=== PATIENT | male | born 1950 | race Caucasian/White ===

== ENCOUNTER 2023-07-21 18:09 | Inpatient (IN) | payer BC, SELFPAY ==
[2023-07-21] VITALS (10 sets, daily range): BP systolic 97–160; BP diastolic 54–84; BMI 28.0; BMI 27.1
[2023-07-21 15:16] LABS: ALT (SGPT) 47 U/L (0-50); AST (SGOT) 53 U/L (17-59); Albumin 4.4 g/dl (3.5-5.0); Alkaline Phosphatase 43 U/L (38-126); Blood Urea Nitrogen 18 mg/dl (9-20); Calcium 9.3 mg/dl (8.4-10.2); Carbon Dioxide 30 mmol/L (22-30); Chloride 71 mmol/L (98-107); Glucose 145 mg/dl (70-99); Potassium 2.9 mmol/L (3.5-5.1); Sodium 111 mmol/L (135-145); Total Bilirubin 3.5 mg/dl (0.2-1.3); eGFR > 60.00
[2023-07-21 15:45] LABS: % Basophils 0.2 % (0-2); % Eosinophils 0.5 % (0-6); % Immature Granulocytes 1.9 % (0-0.5); % Lymphocytes 8.1 % (20.5-51.1); % Monocytes 10.9 % (1.7-9.3); % Neutrophils 78.4 % (42.2-75.2); Absolute Eosinophils 0.1 10^3/uL (0-0.7); Absolute Immature Granulocytes 0.2 10^3/uL (0-0.05); Absolute Lymphocytes 0.9 10^3/uL (1.2-3.4); Absolute Monocytes 1.3 10^3/uL (0.1-0.6); Hematocrit 42.9 % (39.0-52.0); Hemoglobin 17.3 g/dL (13.0-18.0); Mean Corp Hgb Conc. 40.3 g/dL (33.0-37.0); Mean Corpuscular Hgb 33.6 pg (27.0-31.0); Mean Corpuscular Volume 83.3 fL (80.0-94.0); Mean Platelet Volume 8.3 fL (7.4-10.4); Nucleated Red Blood Cells % 0 % (-); Platelet Count 270 10^3/uL (130-400); Red Blood Cell Count 5.15 10^6/uL (4.70-6.10); Red Cell Dist. Width 11.9 % (11.5-14.5); White Blood Cell Count 11.5 10^3/uL (4.8-10.8)
--- NOTE | 2023-07-21 16:15 | ED.GENMED ---
History of Present Illness
<Evan Varela PA-C - Last Filed: 07/21/23 17:00>
General
Chief Complaint: Dehydration Symptoms
Source: patient
Exam Limitations: none
Time Seen by Provider: 07/21/23 15:51
Travel History
Have you had any contact with someone who has COVID-19?: No
Do you have any symptoms of coronavirus? Fever > 100 degrees, chills, cough, shortness of breath, sore throat, loss of taste or smell, muscle aches, or headache?: No
History of Present Illness
History of Present Illness:
73-year-old male presents with progressive weakness fatigue and subtle confusion. He was initially thought to have a sinus infection by family doctor and was taking Levaquin. He is on hydrochlorothiazide 25 mg daily as well as a statin. He denies
abdominal pain or vomiting. He does his appetite. He does not note a headache. No fever. No swelling. No other complaints at this time.
Phy Exam
<Evan Varela PA-C - Last Filed: 07/21/23 17:00>
Physical Exam
Physical Exam:
General: WEll appearing male NAD
HEENT: NC/AT
Heart: RRR, no murmurs
Lungs; CTA bilaterally
Abd; soft, nontender
Ext: no cyanosis
Skin: Warm, no rash
Neuro: Alert and oriented x 3. No tremor.
Course
<Evan Varela PA-C - Last Filed: 07/21/23 17:00>
Orders/Labs/Results
Orders:
Orders
07/21/23 14:42
Complete Blood Count/With Diff Urgent
Comprehensive Metabolic Panel Urgent
07/21/23 16:00
Add On- LAB Urgent
Tests Added?: serum osmolality
Osmolality, Random Urine Urgent
Date Specimen was Collected: 07/21/23
Time Specimen was Collected: 16:25
Urine Sodium Urgent
Date Specimen was Collected: 07/21/23
Time Specimen was Collected: 16:25
07/21/23 16:01
Urinalysis Reflex To Culture Urgent
Date Specimen was Collected: 07/21/23
Time Specimen was Collected: 16:25
07/21/23 16:11
BMP [Basic Metabolic Panel] Stat
Serum Osmolality Stat
07/21/23 17:00
3% Sodium Chloride 250 ml [Sodium Chloride 3%] 250 ml IV ONCE
Abnormal Lab Results
07/21/23 07/21/23
14:42 16:11
WBC 11.5 H 10^3/uL
(4.8-10.8)
MCH 33.6 H pg
(27.0-31.0)
MCHC 40.3 H g/dL
(33.0-37.0)
Abs Immat Gran (auto) 0.2 H 10^3/uL
(0-0.05)
Absolute Neuts (auto) 9.0 H 10^3/uL
(1.4-6.5)
Absolute Lymphs (auto) 0.9 L 10^3/uL
(1.2-3.4)
Absolute Monos (auto) 1.3 H 10^3/uL
(0.1-0.6)
Immature Gran % 1.9 H %
(0-0.5)
Neutrophils % 78.4 H %
(42.2-75.2)
Lymphocytes % 8.1 L %
(20.5-51.1)
Monocytes % 10.9 H %
(1.7-9.3)
Sodium 111 L* mmol/L 108 L* mmol/L
(135-145) (135-145)
Potassium 2.9 L mmol/L 3.1 L mmol/L
(3.5-5.1) (3.5-5.1)
Chloride 71 L mmol/L 72 L mmol/L
(98-107) (98-107)
Glucose 145 H mg/dl 122 H mg/dl
(70-99) (70-99)
Total Bilirubin 3.5 H mg/dl
(0.2-1.3)
07/21/23 14:42
07/21/23 16:11
Vital Signs
Initial and Last Documented VS:
Initial Vital Signs
Temp Pulse Resp BP Pulse Ox
98.0 F 76 16 109/65 98
07/21/23 14:33 07/21/23 14:33 07/21/23 14:33 07/21/23 14:33 07/21/23 14:33
Last Documented Vital Signs
Temp Pulse Resp BP Pulse Ox
98.0 F 68 24 132/74 91
07/21/23 14:33 07/21/23 16:15 07/21/23 16:15 07/21/23 16:00 07/21/23 16:15
<Magali Das MD - Last Filed: 07/21/23 16:58>
Orders/Labs/Results
Orders:
Orders
07/21/23 14:42
Complete Blood Count/With Diff Urgent
Comprehensive Metabolic Panel Urgent
07/21/23 16:00
Add On- LAB Urgent
Tests Added?: serum osmolality
Osmolality, Random Urine Urgent
Date Specimen was Collected: 07/21/23
Time Specimen was Collected: 16:25
Urine Sodium Urgent
Date Specimen was Collected: 07/21/23
Time Specimen was Collected: 16:25
07/21/23 16:01
Urinalysis Reflex To Culture Urgent
Date Specimen was Collected: 07/21/23
Time Specimen was Collected: 16:25
07/21/23 16:11
BMP [Basic Metabolic Panel] Stat
Serum Osmolality Stat
07/21/23 17:00
3% Sodium Chloride 250 ml [Sodium Chloride 3%] 250 ml IV ONCE
Abnormal Lab Results
07/21/23 07/21/23
14:42 16:11
WBC 11.5 H 10^3/uL
(4.8-10.8)
MCH 33.6 H pg
(27.0-31.0)
MCHC 40.3 H g/dL
(33.0-37.0)
Abs Immat Gran (auto) 0.2 H 10^3/uL
(0-0.05)
Absolute Neuts (auto) 9.0 H 10^3/uL
(1.4-6.5)
Absolute Lymphs (auto) 0.9 L 10^3/uL
(1.2-3.4)
Absolute Monos (auto) 1.3 H 10^3/uL
(0.1-0.6)
Immature Gran % 1.9 H %
(0-0.5)
Neutrophils % 78.4 H %
(42.2-75.2)
Lymphocytes % 8.1 L %
(20.5-51.1)
Monocytes % 10.9 H %
(1.7-9.3)
Sodium 111 L* mmol/L 108 L* mmol/L
(135-145) (135-145)
Potassium 2.9 L mmol/L 3.1 L mmol/L
(3.5-5.1) (3.5-5.1)
Chloride 71 L mmol/L 72 L mmol/L
(98-107) (98-107)
Glucose 145 H mg/dl 122 H mg/dl
(70-99) (70-99)
Total Bilirubin 3.5 H mg/dl
(0.2-1.3)
07/21/23 14:42
07/21/23 16:11
Vital Signs
Initial and Last Documented VS:
Initial Vital Signs
Temp Pulse Resp BP Pulse Ox
98.0 F 76 16 109/65 98
07/21/23 14:33 07/21/23 14:33 07/21/23 14:33 07/21/23 14:33 07/21/23 14:33
Last Documented Vital Signs
Temp Pulse Resp BP Pulse Ox
98.0 F 68 24 132/74 91
07/21/23 14:33 07/21/23 16:15 07/21/23 16:15 07/21/23 16:00 07/21/23 16:15
<Evan Varela PA-C - Last Filed: 07/21/23 17:00>
MDM/Problems Addressed
Differential Diagnosis Includes:
Fatigue and weakness. Question viral illness versus electrolyte abnormality versus anemia
Labs demonstrate a sodium of 111. This would be new diagnosis for the patient. Will recheck labs. If this is accurate consider hypertonic saline for symptomatic hyponatremia.
<Evan Varela PA-C - Last Filed: 07/21/23 17:00>
*Critical Care Note
Total Time (30-74mins, 75-104mins- exclusive of procedures): Not Applicable
<Evan Varela PA-C - Last Filed: 07/21/23 17:00>
Update Note
Update Note:
Recheck sodium 108. Patient is on hydrochlorothiazide. Discussed with nephrology who is in the room currently. Will admit to hospital for acute hyponatremia hypertonic saline ordered
ED Attending Note
<Evan Varela PA-C - Last Filed: 07/21/23 17:00>
-
Portions of this chart may have been created with voice recognition software.� Occasional wrong word or��sound alike� substitutions may have occurred due to the inherent limitations of voice recognition software.
<Magali Das MD - Last Filed: 07/21/23 16:58>
ED Attending Note
Patient seen and examined by attending physician: Yes
I performed the substantive portion of visit, reviewed & personally made and approve the management plan that is documented in note by myself or ARUN.: Yes
ED Attending Note:
73-year-old male presents to the emergency department with a 3-week history of increasing fatigue, imbalance with fall x 2 over the weekend, and generally not feeling well. He also notes rhinorrhea, postnasal drip, and occasional cough. Has seen
the primary care doctor 3 times over this time period, started on 3 different antibiotics and most recently steroids. Was unable to tolerate p.o. Levaquin most recently. He has a slight headache but denies vomiting, fever, chills, chest pain,
shortness of breath. Patient noted to have severe hyponatremia. Of note, patient takes hydrochlorothiazide. Consultation with nephrology, 3% being started at this time with focus on steady but intentionally conservative correction rate, DC
hydrochlorothiazide, further workup. Son at bedside aware of evaluation thus far.
Discharge Plan
Departure
Patient Disposition: Admit
Date of Disposition: 07/21/23
Time of Disposition: 17:00
Admit to: Telemetry
Presentation/result/management discussed w/ accepting MD/DO: Hospitalist
Discharge Problem:
Acute hyponatremia
Prescriptions:
No Action
simvastatin 20 MG tablet
20 mg PO HS
hydrochlorothiazide 25 mg tablet
25 mg PO DAILY
levofloxacin 500 mg tablet
500 mg PO DAILY
methylprednisolone 4 mg tablets,dose pack
4 mg PO USEASDIRECTD
doxycycline hyclate 100 mg tablet
100 mg PO BID
omeprazole 20 mg Capsule,Delayed Release(Dr/Ec)
20 mg PO DAILY
Referrals:
NONE,* [Family Provider] -
Interventions
Interventions:
*Risk Screen - Suicide Last Done: 07/21/23 15:51
*General Assessment Last Done: 07/21/23 15:51
*Neglect/Abuse Screening Last Done: 07/21/23 15:51
*ED COVID-19 Vaccine History Last Done: 07/21/23 14:33
ED- Cardiac Assessment Last Done: 07/21/23 15:51
ED- Neurological Assessment Last Done: 07/21/23 15:51
ED- Pulmonary Assessment Last Done: 07/21/23 15:51
Discharge Date and Time
Print Language: LATVIAN
--- NOTE | 2023-07-21 16:49 | W.CON.NEPH ---
Consultation
-
Date/Time Consultation Requested: 07/21/23 1630
Date/Time Consultation Performed: 07/21/23 1650
Requesting Provider: leanne Dukes
Performing Provider: Peg Garcia
Reason for Consultation: hyponatremia
Medical History
-
Chief Complaint: Gen weakness
History of Present Illness:
73-year-old male with h/o HTN on HCTZ, HLD on statin, GERD on PPI who presents with progressive weakness fatigue and subtle confusion of 1 week. 2 wk ago he was felt to have sinus infection by family doctor and started Antibiotics. He also later
added steroids with some relief of runny nose and post nasal drip. He reports poor appetite and decreased po intake for 1week, mild nausea. Thinking is slowed down. Since his symptoms progressing referred to ER by PCP.Denies headache. No fever.
No swelling, no diarrhea or constipation or abd pain. No other complaints at this time. Sodium found to be 111 and repeat shows 108 with low k 3.
Past Medical History
HTN
HLD
GERD
Chr nasal/sinus congestion
environmental allergies,
History of colon polyp,
Actinic keratoses,
Elevated fasting glucose/prediabetes,
basal cell removed left posterior shoulder September 2021,
epidermoid cyst removed right ear,
helical rim September 2021.
Past Surgical History: Other ( excision of nodular basal cell ca left posterior shoulder September 2021, excision of epidermoid cyst right ear, helical rim September 2021, Basal cell removed-[facility] )
Social History
quit smoking 1974, smoked 1 ppd ages [age], 9 pack years
had consumed excess wine in 2014 after his , had been drinking 2 shots of liqueur per night
in 2014
has three children
served in the [employer] for 20 years
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
Family History
�Father: 76 yrs, Liver Cancer.� Mother: 93 yrs, was on blood thinner for DVTs hip replacements.�
Paternal uncle: colon cancer.�
Siblings: sister had ovarian and cervical cancer.�
Paternal Grand Mother: diagnosed with Diabetes.�
sister -hysterectomy, had cervical cancer and ovarian cancer, doing well
Family History: Not Pertinent
Allergies / Home Medications
Allergy/AdvReac Type Severity Reaction Status Date / Time
No Known Allergies Allergy Unverified 07/21/23 16:35
�Medication �Instructions �Recorded �Confirmed �Type
simvastatin 20 mg tablet 20 mg PO HS 01/18/10 07/21/23 History
doxycycline hyclate 100 mg tablet 100 mg PO BID 07/21/23 07/21/23 History
hydrochlorothiazide 25 mg tablet 25 mg PO DAILY 07/21/23 07/21/23 History
levofloxacin 500 mg tablet 500 mg PO DAILY 07/21/23 07/21/23 History
methylprednisolone 4 mg tablets in 4 mg PO USEASDIRECTD 07/21/23 07/21/23 History
a dose pack
omeprazole 20 mg capsule,delayed 20 mg PO DAILY 07/21/23 07/21/23 History
release
Review of Systems
-
All complete 12 point ROS inquired and found negative other than stated in HPI
Physical Exam
Vital Signs
Vital Signs
Temp Pulse Resp BP Pulse Ox
98.0 F 68 24 132/74 91
07/21/23 14:33 07/21/23 16:15 07/21/23 16:15 07/21/23 16:00 07/21/23 16:15
Lab Results
WBC 11.5 10^3/uL (4.8-10.8) H 07/21/23 14:42
RBC 5.15 10^6/uL (4.70-6.10) 07/21/23 14:42
Hgb 17.3 g/dL (13.0-18.0) 07/21/23 14:42
Hct 42.9 % (39.0-52.0) 07/21/23 14:42
Plt Count 270 10^3/uL (130-400) 07/21/23 14:42
eGFR > 60.00 07/21/23 14:42
Albumin 4.4 g/dl (3.5-5.0) 07/21/23 14:42
Physical Exam
General: Awake, Alert, Oriented, AOx3, No Distress and Nontoxic
HEENT: EOMI, Anicteric, Neck Supple, Trachea Midline and No JVD
Respiratory: Clear, Normal Excursion and Nonlabored Respirations
Cardiac: S1/S2 and Regular Rate/Rhythm
Abdomen: Soft, Nontender and Nondistended
Musculoskeletal: No Cyanosis and No Edema
Skin: No Rash
Neuro: Nonfocal/Grossly Intact
Psych: Mood/afflect pleasant, Insight/judgement good, Appropriate and Other (slow to respond)
Assessment/Plan
-
IMP:
Severe hyponatremia
Hypokalemia
HTN
HLD
Chr sinus/nasal congestion
Plan:
A/w gen weakness and confusion sodium found at 111, repeat 108
severe hyponatremia-d/c HCTZ indefinitly
check U osmo and U sodium, suspect high ADH state from illness and poor solute intake
ok to start 3% saline 20cc/hr and check labs q4hrs
goal of correction 6-8meq/day
check TSH, cortisol in am
BP stable
replace k , it help to raise na too
check mg
ICU admit
d/w pt and family at bedside
d/w ER
[2023-07-21] MEDS: SODIUM CHLORIDE 3% 250 IV (16:52)
[2023-07-21 16:57] LABS: Blood Urea Nitrogen 19 mg/dl (9-20); Calcium 9.1 mg/dl (8.4-10.2); Carbon Dioxide 29 mmol/L (22-30); Chloride 72 mmol/L (98-107); Estimated Creatinine Clearance 96 ml/min; Glucose 122 mg/dl (70-99); Potassium 3.1 mmol/L (3.5-5.1); Sodium 108 mmol/L (135-145); eGFR > 60.00
[2023-07-21 17:04] LABS: Urine Albumin Negative (Neg - Trace); Urine Bilirubin Negative (Negative); Urine Character Clear (Clear); Urine Color Yellow; Urine Glucose Negative (Negative); Urine Ketone Negative (Negative); Urine Leukocyte Trace (Negative); Urine Nitrite Negative (Negative); Urine Occult Blood Negative (Negative); Urine Urobilinogen Negative (Neg - 1+)
[2023-07-21 17:05] LABS: Osmolality Serum 242 mOsm/kg (275-300)
[2023-07-21 17:09] LABS: Osmolality Urine 219 mOsm/kg (300-900)
[2023-07-21 17:14] LABS: Urine Bacteria Few (Negative); Urine Red Blood Cell 0-2 /HPF (0-2)
--- NOTE | 2023-07-21 17:28 | HPS.HSE ---
Family Physician
-
Family Physician: * NONE
Chief Complaint
-
weakness
History of Present Illness
73-year-old male past medical history of hypertension, hyperlipidemia, allergies, GERD, presenting with dizziness, weakness, slight confusion.
Patient has been having sinus symptoms including facial pressure, nasal congestion and postnasal drip for the past 2 and half weeks. He was treated with a course of doxycycline without improvement followed by another antibiotic without improvement
followed by Levaquin and prednisone which he started 4 days ago. He denies any sore throat or fevers or chills at any time. He has been taking Zyrtec and Benadryl at nighttime with some improvement. He denies any facial pressure at this time or
cough but continues to have nasal congestion.
Patient is also not been going to work because he has been feeling dizzy for the past week. No headache or blurry vision. He has been having generalized weakness. He has been slightly more confused. Denies numbness or tingling. Denies any
history of low sodium in the past. He has been on hydrochlorothiazide for a long time without any recent changes in dosage.
Denies nausea, vomiting or diarrhea. Denies chest pain or SOB.
Drinks 2 shots of tequila per day. He denies any smoking.
Medical History
Past Medical History
Past Medical History: Reports Other ( hypertension, hyperlipidemia, allergies, GERD)
Past Surgical History: Reports None
Social History
Tobacco: Non-smoker
Alcohol: Daily
Drug: None
Family History
Family History: Not pertinent
Allergies / Home Medications
Allergies reflects when Allergies were last updated in [facility].
Home Medications with original date entered in [facility]
Allergy/Medication List:
Allergies
Allergy/AdvReac Type Severity Reaction Status Date / Time
No Known Allergies Allergy Unverified 07/21/23 16:35
Home Medications
simvastatin 20 mg tablet 20 mg PO HS 01/18/10
doxycycline hyclate 100 mg tablet 100 mg PO BID 07/21/23
hydrochlorothiazide 25 mg tablet 25 mg PO DAILY 07/21/23
levofloxacin 500 mg tablet 500 mg PO DAILY 07/21/23
methylprednisolone 4 mg tablets in a dose pack 4 mg PO USEASDIRECTD 07/21/23
omeprazole 20 mg capsule,delayed release 20 mg PO DAILY 07/21/23
Review of Systems
-
History Source: Patient
A 12 point ROS was completed and negative except as noted: Yes
Constitutional: Reports No Symptoms
EENT: Reports See HPI
Respiratory: Reports No Symptoms
Cardiac: Reports No Symptoms
Abdomen/GI: Reports No Symptoms
: Reports No Symptoms
Musculoskeletal: Reports No Symptoms
Skin: Reports No Symptoms
Neurological: Reports No Symptoms
Endocrine: Reports No Symptoms
Hematologic/Lymphatic: Reports No Symptoms
Psych: Reports No Symptoms
Physical Exam
Vital Signs
Vital Signs
Temp Pulse Resp BP Pulse Ox
98.0 F 68 24 132/74 91
07/21/23 14:33 07/21/23 16:15 07/21/23 16:15 07/21/23 16:00 07/21/23 16:15
Physical Exam
General: Well Developed, Well Nourished and No Apparent Distress
HEENT: NormoCephalic, Moist mucous membranes and Atraumatic
Respiratory: Clear
Cardiac: S1/S2 and Regular Rhythm; No Murmur or Rub
GI: Soft, Non Tender, Non Distended and Normal Bowel Sounds; No Organomegaly
Rectal: Deferred by Provider
Musculoskeletal: No Clubbing, No Cyanosis and No Edema
Skin: No Rash
Neuro: Nonfocal/grossly intact
Laboratory Results
-
07/21/23 14:42
07/21/23 16:11
Laboratory Results
Total Bilirubin 3.5 mg/dl (0.2-1.3) H 07/21/23 14:42
AST 53 U/L (17-59) 07/21/23 14:42
ALT 47 U/L (0-50) 07/21/23 14:42
Alkaline Phosphatase 43 U/L (38-126) 07/21/23 14:42
Data Reviewed
-
Lab Data: Labs Reviewed by me
Old Records: Reviewed
Impression/Plan
-
IMPRESSION:
PLAN:
# Severe symptomatic hyponatremia secondary to hydrochlorothiazide
-Sodium of 111, now 108
-Discontinue hydrochlorothiazide permanently
-Check urine sodium, osmolality, TSH, a.m. cortisol
-Hypertonic saline
-Check BMP every 4 hours
# Hypokalemia secondary to hydrochlorothiazide
-Replete potassium
-Check magnesium
# Recent sinusitis, appears to have resolved
# Allergic rhinitis
-Symptoms and examination do not suggest active sinusitis at this time
-Has been on more than adequate course of antibiotic
-Will discontinue further antibiotics or steroids
-Start daily zyrtec which patient takes intermittently
# Leukocytosis secondary to steroids
-Discontinued steroid, continue to monitor
Essential hypertension
-Discontinue hydrochlorothiazide
Hyperlipidemia
-Continue statin
GERD
-Continue omeprazole
Daily alcohol use
-No evidence of withdrawal currently
Full code
DVT prophylaxis heparin
Regular diet
[2023-07-21 17:43] LABS: Magnesium 2.4 mg/dl (1.6-2.3)
[2023-07-21] MEDS: KCL ELIXIR 40 MEQ PO (18:30)
--- NOTE | 2023-07-21 20:00 | PTCARENOTE ---
patient received from ER. denies pain or SOB. oriented x3. pupils b/l 3 brisk. denies PERAZA or dizziness. 3% NS infusing at 20ml/hr through PIV. repeat BMP sent. SR on monitor, afebrile. + pulses. on RA, lungs CTA, slightly diminished. frequent
nonproductive cough, admits to recent sinus infection. regular diet ordered. admits to issues swallowing pillows and some food in past few weeks, speech consulted. swallow screening done, speech consult placed. urinal at bedside, voids at side of
bed. scattered bruises noted from recent fall. daughter and son at bedside, updated on plan of care. care ongoing.
[2023-07-21 20:01] LABS: Urine Sodium < 5 mmol/L (30-90)
[2023-07-21] MEDS: HEPARIN 5000 UNITS SC (20:12)
[2023-07-21] MEDS: LIPITOR 10 MG PO (20:12)
[2023-07-21 20:26] LABS: APTT 26.1 Sec (23.4-35.0)
[2023-07-21 20:34] LABS: Blood Urea Nitrogen 17 mg/dl (9-20); Calcium 8.8 mg/dl (8.4-10.2); Carbon Dioxide 32 mmol/L (22-30); Chloride 75 mmol/L (98-107); Estimated Creatinine Clearance 96 ml/min; Glucose 133 mg/dl (70-99); Potassium 3.3 mmol/L (3.5-5.1); Sodium 113 mmol/L (135-145); eGFR > 60.00
[2023-07-21 21:00] LABS: TSH Reflex To Free T4 0.49 uIU/ml (0.47-4.68)
--- NOTE | 2023-07-21 21:00 | PTCARENOTE ---
repeat Na 113, ICU LODGING FACILITIES MANAGER aware, no new orders at this time
--- NOTE | 2023-07-21 23:17 | PTCARENOTE ---
per nephrology, hold 3% NS. repeat BMP at 0000.
[2023-07-22] VITALS (17 sets, daily range): BP systolic 103–149; BP diastolic 55–85; PULSE 76–90; O2SAT 92–94; BMI 27.1
--- NOTE | 2023-07-22 00:30 | PTCARENOTE ---
patient reassessed. neuro status unchanged. 2L NC placed. using urinal at bedside. repositions self. repeat BMP sent. care ongoing.
[2023-07-22 01:26] LABS: Blood Urea Nitrogen 15 mg/dl (9-20); Calcium 8.6 mg/dl (8.4-10.2); Carbon Dioxide 31 mmol/L (22-30); Chloride 80 mmol/L (98-107); Estimated Creatinine Clearance 112 ml/min; Glucose 129 mg/dl (70-99); Potassium 3.1 mmol/L (3.5-5.1); Sodium 115 mmol/L (135-145); eGFR > 60.00
--- NOTE | 2023-07-22 04:25 | PTCARENOTE ---
patient reassessed, no changes noted. AM labs sent. pt repositioning self. denies pain or SOB. 3% NS remains on hold. care ongoing.
[2023-07-22 05:15] LABS: ALT (SGPT) 45 U/L (0-50); AST (SGOT) 41 U/L (17-59); Albumin 3.8 g/dl (3.5-5.0); Alkaline Phosphatase 44 U/L (38-126); Blood Urea Nitrogen 15 mg/dl (9-20); Calcium 8.6 mg/dl (8.4-10.2); Carbon Dioxide 33 mmol/L (22-30); Chloride 80 mmol/L (98-107); Estimated Creatinine Clearance 96 ml/min; Glucose 122 mg/dl (70-99); Sodium 117 mmol/L (135-145); Total Bilirubin 3.1 mg/dl (0.2-1.3); Total Protein 6.2 g/dl (6.3-8.2); eGFR > 60.00
[2023-07-22 05:28] LABS: Cortisol, Random 5.9 ug/dl
[2023-07-22 05:33] LABS: % Basophils 0.2 % (0-2); % Immature Granulocytes 1.7 % (0-0.5); % Lymphocytes 12.3 % (20.5-51.1); % Monocytes 12.9 % (1.7-9.3); % Neutrophils 71.9 % (42.2-75.2); Absolute Eosinophils 0.1 10^3/uL (0-0.7); Absolute Immature Granulocytes 0.1 10^3/uL (0-0.05); Absolute Monocytes 1.1 10^3/uL (0.1-0.6); Absolute Neutrophils 5.8 10^3/uL (1.4-6.5); Hematocrit 43.3 % (39.0-52.0); Hemoglobin 16.5 g/dL (13.0-18.0); Mean Corp Hgb Conc. 38.1 g/dL (33.0-37.0); Mean Corpuscular Hgb 33.3 pg (27.0-31.0); Mean Corpuscular Volume 87.3 fL (80.0-94.0); Mean Platelet Volume 8.4 fL (7.4-10.4); Nucleated Red Blood Cells % 0 % (-); Platelet Count 211 10^3/uL (130-400); Red Blood Cell Count 4.96 10^6/uL (4.70-6.10); Red Cell Dist. Width 11.9 % (11.5-14.5); White Blood Cell Count 8.1 10^3/uL (4.8-10.8)
[2023-07-22] MEDS: KCL 270 MEQ IV (05:57)
[2023-07-22] MEDS: KLOR-CON 20 MEQ PO (05:57)
--- NOTE | 2023-07-22 06:54 | W.PN.HOSP.TC ---
Today's Communication/Plan
-
PT/OT eval
Replete potassium
cont treatment hypernatremia as per Nephrology
monitor BMP
Assessment / Plan
Assessment / Plan
Physical Exam
General: No acute distress, appears comfortable at this time
HEENT: NormoCephalic, Moist mucous membranes and Atraumatic
Respiratory: Clear
Cardiac: S1/S2 and Regular Rhythm; No Murmur or Rub
GI: Soft, Non Tender, Non Distended and Normal Bowel Sounds; No Organomegaly
Musculoskeletal: No Clubbing, No Cyanosis and No Edema
Skin: No Rash
Neuro: Nonfocal/grossly intact
# Severe symptomatic hyponatremia secondary to hydrochlorothiazide
-Sodium of 111, now 108
-HCTZ discontinued permanently
-Low urine sodium, osmolality
-TSH, a.m. cortisol wnl
-Hypertonic saline as per Nephro
-Check BMP every 4 hours
-Nephro eval appreciated
-Kettle Room Helper eval
# Hypokalemia secondary to hydrochlorothiazide
-monitor and Replete as necessary
# Recent sinusitis, appears to have resolved
# Allergic rhinitis
-completed adequate course of antibiotic prior to admission
-Will discontinue further antibiotics or steroids
-Daily zyrtec (patient took intermittently at home)
-outpt ENT follow up recommended
# Leukocytosis secondary to steroids
-resolved off steroids
Essential hypertension
-Discontinued hydrochlorothiazide
-BP relatively at goal at this time
-will consider alternative antihypertensive if BP persistently elevated
Mild T Bili elevation, LFTs otherwise wnl
-cont to monitor for now
Hyperlipidemia
-Continue statin
GERD
-Continue omeprazole
Daily alcohol use
-No evidence of withdrawal currently
Full code
DVT prophylaxis heparin
Regular diet
PT/OT eval
Total Critical Care Time__40___ minutes. I was immediately available to the patient and staff. I personally examined, reviewed labs, diagnostic images/reports, interpretations, treatment plans, discussed patient care with other providers and
family or caregivers (if patient is unable to make decisions), entered orders as appropriate and documented the medical record.
Anticipated Discharge: > 48 hours
Subjective/Interval History
-
Date of Service: July 22, 2023
No acute distress, resting comfortably in bed. Reports poor sleep. Post-nasal drip with associate cough. Otherwise reports feeling well.
Objective Data
-
Labs:
Laboratory Results
07/21/23 07/22/23 07/22/23
20:08 00:08 00:35
WBC
Hgb
Hct
Plt Count
PT 13.0
INR 1.00
APTT 26.1
Sodium 113 L* Cancelled 115 L*
Potassium 3.3 L Cancelled 3.1 L
Chloride 75 L Cancelled 80 L
Carbon Dioxide 32 H Cancelled 31 H
BUN 17 Cancelled 15
Creatinine 0.7 Cancelled 0.6 L
Glucose 133 H Cancelled 129 H
Calcium 8.8 Cancelled 8.6
Total Bilirubin
AST
ALT
Alkaline Phosphatase
07/22/23 07/22/23 07/22/23
04:11 04:11 04:11
WBC 8.1
Hgb 16.5
Hct 43.3
Plt Count 211 D
PT
INR
APTT
Sodium 117 L* Cancelled
Potassium 3.0 L Cancelled
Chloride 80 L
Carbon Dioxide
BUN
Creatinine
Glucose
Calcium
Total Bilirubin
AST
ALT
Alkaline Phosphatase
07/22/23 07/22/23 07/22/23
04:11 04:11 04:11
WBC
Hgb
Hct
Plt Count
PT
INR
APTT
Sodium
Potassium
Chloride Cancelled
Carbon Dioxide 33 H Cancelled
BUN 15 Cancelled
Creatinine 0.7
Glucose
Calcium
Total Bilirubin
AST
ALT
Alkaline Phosphatase
07/22/23 07/22/23 07/22/23
04:11 04:11 04:11
WBC
Hgb
Hct
Plt Count
PT
INR
APTT
Sodium
Potassium
Chloride
Carbon Dioxide
BUN
Creatinine Cancelled
Glucose 122 H Cancelled
Calcium 8.6 Cancelled
Total Bilirubin 3.1 H
AST 41
ALT 45
Alkaline Phosphatase 44
07/22/23
08:00
WBC
Hgb
Hct
Plt Count
PT
INR
APTT
Sodium Pending
Potassium Pending
Chloride Pending
Carbon Dioxide Pending
BUN Pending
Creatinine Pending
Glucose Pending
Calcium Pending
Total Bilirubin
AST
ALT
Alkaline Phosphatase
Vital Signs:
Vital Signs
Temp Pulse Resp BP Pulse Ox
97.9 F 69 20 120/67 99
07/22/23 03:15 07/22/23 06:00 07/22/23 06:00 07/22/23 06:00 07/22/23 06:00
I&O
07/20/23 07/21/23 07/22/23
06:59 06:59 06:59
Intake Total 60 / 60
Output Total 1300 / 1300
Balance -1240 / -1240
--- NOTE | 2023-07-22 07:35 | PTCARENOTE ---
Hospitalist at bedside this am with patient will await consult follow up for possible transfer. Continue lab trends. Lyte replacement as ordered. Assessment, vital signs ongoing and as documented. Continue hourly rounds and frequent safety checks.
Call white in reach and in use.
[2023-07-22 07:57] LABS: Direct Bilirubin 0.3 mg/dl (0.0-0.4)
[2023-07-22] MEDS: HEPARIN 5000 UNITS SC (08:14)
[2023-07-22] MEDS: ZYRTEC 10 MG PO (08:14)
[2023-07-22] MEDS: PROTONIX 40 MG PO (08:14)
--- NOTE | 2023-07-22 09:59 | PTCARENOTE ---
Update in morning rounds. Update assessment, lyte lab trends and follow up with endoscopy technician team. PT/OT in to update and evaluate patient history dizziness, weakness and follow up overall assessment. Will continue with trends. Patient 100% of
breakfast this am. Continue rounds and lab trends.
--- NOTE | 2023-07-22 10:44 | W.PN.NEPH.PH ---
Today's Communication / Plan
-
see plan
Assessment/Plan
-
IMP:
Severe hyponatremia
Hypokalemia
HTN
HLD
Chr sinus/nasal congestion
Plan:
A/w gen weakness and confusion sodium found at 111, repeat 108
severe hyponatremia-d/c HCTZ indefinitly
U osmo 219 and U sodium low at 9, suspect high ADH state from illness and poor solute intake
sodium improving to 117 this am, off 3% saline midnight
goal of correction 6-8meq/day , FR 40ounces/day
TSH, cortisol were ok
BP stable
replace k , it help to raise na too
d/w ICU , can downgrade to tele per renal point
-
-
Date of Service: July 22, 2023
CC / HPI / ROS
-
Chief Complaint:
Hyponatremia
History of Present Illness:
sodium improving to 117, off 3% saline midnight
BP stable, k low 3
Review of Systems:
no cp or sob
feels better today , no dizziness
Labs
-
Labs:
WBC 8.1 10^3/uL (4.8-10.8) 07/22/23 04:11
RBC 4.96 10^6/uL (4.70-6.10) 07/22/23 04:11
Hgb 16.5 g/dL (13.0-18.0) 07/22/23 04:11
Hct 43.3 % (39.0-52.0) 07/22/23 04:11
Plt Count 211 10^3/uL (130-400) D 07/22/23 04:11
Sodium Cancelled 07/22/23 20:00
Potassium Cancelled 07/22/23 20:00
Chloride Cancelled 07/22/23 20:00
Carbon Dioxide Cancelled 07/22/23 20:00
BUN Cancelled 07/22/23 20:00
Creatinine Cancelled 07/22/23 20:00
eGFR Cancelled 07/22/23 20:00
Glucose Cancelled 07/22/23 20:00
Calcium Cancelled 07/22/23 20:00
Albumin 3.8 g/dl (3.5-5.0) 07/22/23 04:11
Physical Exam
-
Vital Signs:
Vital Signs
Temp Pulse Resp BP Pulse Ox
98.4 F 77 18 141/84 93
07/22/23 07:30 07/22/23 09:00 07/22/23 09:00 07/22/23 08:00 07/22/23 09:55
Cardiovascular:: Regular rate and rhythm
Respiratory:: Bilateral: CTA
Lung Excursion:: Normal
Abdomen:: Nontender and Soft
Extremity Edema:: None: Bilateral:
Das Catheter: No
--- NOTE | 2023-07-22 11:37 | CON.INTV ---
Consultation
Consultation Request
Date/Time Consultation Requested: 07/22/2023
Date/Time Consultation Performed: 07/22/2023
Requesting Provider: Dr. Sanders
Performing Provider: Dr. Bryan Lamb
Reason for Consultation: Life-threatening/symptomatic hyponatremia/severe hypokalemia
Medical History
-
History of Present Illness:
73-year-old man with past medical history significant for hypertension, hyperlipidemia, GERD who presented to the emergency room complaining of dizziness, weakness and some confusion.
Patient has been suffering from a possible sinus infection. He was prescribed 2 courses of antibiotics and prednisone. Currently denies any sore throat, fevers, phlegm production. Congestion of the sinuses has improved.
He has also been taking antihistamine for nasal congestion.
For about a week he has been feeling dizzy. Denies any nausea or vomiting. He has been feeling very tired, fatigued and weak.
On exam in the emergency room has been confused.
He has been taking hydrochlorothiazide for many years.
He usually drinks 2 shots of tequila per day.
He was found to have severe hyponatremia and hypokalemia.
He required ICU admission for hypertonic saline infusion.
Past Medical History
Past Medical History: Other (See assessment and plan section.)
Social History
Tobacco: Non-smoker
Alcohol: Daily
Drug: None
Family History
Family History: Reviewed & Not Pertinent
Allergies / Home Medications
Allergies
Allergy/AdvReac Type Severity Reaction Status Date / Time
No Known Allergies Allergy Unverified 07/21/23 16:35
Home Medications
�Medication �Instructions �Recorded �Confirmed �Last Taken �Type
simvastatin 20 mg tablet 20 mg PO HS High Cholesterol 01/18/10 07/21/23 7 Days Ago History
~07/14/23
doxycycline hyclate 100 mg tablet 100 mg PO BID Infection 07/21/23 07/21/23 Unknown History
hydrochlorothiazide 25 mg tablet 25 mg PO DAILY Fluid 07/21/23 07/21/23 7 Days Ago History
Retention/Swelling ~07/14/23
levofloxacin 500 mg tablet 500 mg PO DAILY Infection 07/21/23 07/21/23 Unknown History
methylprednisolone 4 mg tablets in 4 mg PO USEASDIRECTD 07/21/23 07/21/23 Unknown History
a dose pack Anti-Inflammatory
omeprazole 20 mg capsule,delayed 20 mg PO DAILY Gastrointestinal 07/21/23 07/21/23 7 Days Ago History
release Issue ~07/14/23
Review of Systems
-
History Source: Patient
All other systems: Negative unless noted
Vitals / Labs / Diagnostic Testing
Vital Signs
Temp Pulse Resp BP Pulse Ox
98.4 F 77 18 141/84 93
07/22/23 07:30 07/22/23 09:00 07/22/23 09:00 07/22/23 08:00 07/22/23 09:55
Lab Data
07/22/23 04:11
07/22/23 20:00
Laboratory Results
07/21/23
20:08
PT 13.0
INR 1.00
APTT 26.1
Diagnostic Testing:
Physical Exam
-
HEENT: Normocephalic
Cardiovascular: S1/S2
Respiratory: Clear and Non-Labored Respirations
GI: Soft and Non Distended
Neurology: Awake, Alert, AO x 3 and No Motor Deficits
Skin: Warm
General: Respiratory Distress (n)
Assessment
-
73-year-old male with past medical history noted, recently treated for upper respiratory infection, has not been feeling well for the last week or so. Status post a course of antibiotics. On hydrochlorothiazide in the outpatient setting. Came to
the emergency room with progressive weakness, lethargy and confusion. Found to have severe hypokalemia and hyponatremia. Admitted to the ICU for hypertonic saline infusion.
Severe hyponatremia-symptomatic as low as 108 on admission
Weakness/lethargy
Severe hypokalemia-muscle weakness
Electrolyte derangements likely due to hydrochlorothiazide in the setting of respiratory infection and decreased oral intake
TSH and cortisol level adequate 07/22/2023
Conditions present prior admission:
Recent sinusitis status post antibiotic therapy
Allergic rhinitis
Hypertension
Hyperlipidemia
GERD
Daily alcohol use
Assessment and plan:
Patient currently states that he feels slightly better compared to admission.
Sodium improving after hypertonic saline.
Potassium remains low at 3.
-
Hydrochlorothiazide has been permanently discontinued
Oral intake has been encouraged, he is tolerating diet.
Continue to monitor serial BMPs, careful correction of sodium. Current sodium is 117.
Currently hypertonic saline on hold, to repeat BMP later.
Currently KCl rider infusing. Status post oral KCl repletion as well.
Repeat BMP at noon.
-
Sinusitis seems to have resolved for now.
No additional medications/antibiotics needed.
-
DVT prophylaxis with Lovenox
-
Case has been discussed with nephrology as well as primary team.
-
Depending on results of BMP then will decide on transfer to telemetry later today.
If patient is transferred to telemetry later today then critical care team will sign off.
--- NOTE | 2023-07-22 12:05 | PTCARENOTE ---
Update with family at bedside. Update plan of cares and events and progress in [facility]. Continue with teaching, supportive cares and emotional support as needed. Continue follow up assessment and lab trends. Assessment unchanged, presently out of bed to
chair with pt/to earlier. Will again work on ambulation, movement post lunch. Family remains at bedside.
[2023-07-22 12:40] LABS: Blood Urea Nitrogen 18 mg/dl (9-20); Calcium 8.6 mg/dl (8.4-10.2); Carbon Dioxide 28 mmol/L (22-30); Chloride 83 mmol/L (98-107); Estimated Creatinine Clearance 96 ml/min; Glucose 118 mg/dl (70-99); Potassium 3.7 mmol/L (3.5-5.1); Sodium 116 mmol/L (135-145); eGFR > 60.00
--- NOTE | 2023-07-22 12:41 | CM ---
CM following re: discharge planning.
Discussed in Rounds, reviewed pt's chart, met with pt. Pt's son Harish and pt's daughter in law at bedside.
Pt is a 73 year old male, admitted with primary dx of Hyponatremia.
Pt reports he lives alone in a 2SH, 2 steps to enter has 3 supportive children. 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 No DME, VN or SNF history.
PCP: Vicky Mora
Pharmacy: [facility] [facility]
D/C plan: home with anticipated no needs. Family to transport at discharge.
CM will follow with discharge plan updates as hospitalization progresses
--- NOTE | 2023-07-22 15:03 | PTCARENOTE ---
No noted assessment changes. Patient more interactive with staff with son at bedside. Patient update that he has been dealing with coughing and difficulty swallowing. Has a history of for many years. Will follow up 1600 labs. Patient one person
assist from chair to bed, still unsteady on feet. Follow with wax specialist team and nephrology.
[2023-07-22 16:39] LABS: Blood Urea Nitrogen 18 mg/dl (9-20); Calcium 8.5 mg/dl (8.4-10.2); Carbon Dioxide 32 mmol/L (22-30); Chloride 82 mmol/L (98-107); Estimated Creatinine Clearance 84 ml/min; Glucose 117 mg/dl (70-99); Potassium 3.4 mmol/L (3.5-5.1); Sodium 118 mmol/L (135-145); eGFR > 60.00
--- NOTE | 2023-07-22 17:11 | W.PN.UPDATE ---
Update Note
Progress Note Update
Clinically patient feels better.
Sodium is slowly improving.
Will continue to replete potassium as needed, will keep 40 mill equivalents of oral KCl.
Was transferred to telemetry.
Critical care team will sign off.
Call pulmonary if any respiratory issues arise
[2023-07-22] MEDS: LOVENOX 40 MG SC (17:37)
[2023-07-22] MEDS: KCL ELIXIR 40 MEQ PO (17:37)
--- NOTE | 2023-07-22 17:53 | PTCARENOTE ---
Update with family at bedside. Update plan of transfer. Review labs and events of day. Discuss and reinforce ongoing plan of cares. Dinner at this time. Patient much more awake alert and interactive with staff and cares. 'States feels much clearer
today than in last few.' Verbalizes some limitations with walking to family at this assessment. Follow up teaching and supportive cares.
[2023-07-22] MEDS: TYLENOL 650 MG PO (20:01)
[2023-07-22] MEDS: LIPITOR 10 MG PO (20:01)
--- NOTE | 2023-07-22 20:20 | PTCARENOTE ---
receieved patient. denies pain or SOB. oriented x3. denies PERAZA or dizziness. SR on monitor, afebrile. + pulses. on RA, lungs CTA, slightly diminished. frequent nonproductive cough. regular diet ordered. urinal at bedside, voids at side of bed.
scattered bruises noted from recent fall. partner at bedside, updated on plan of care. care ongoing. Tele level of care.
[2023-07-22 20:43] LABS: Blood Urea Nitrogen 19 mg/dl (9-20); Calcium 8.6 mg/dl (8.4-10.2); Carbon Dioxide 31 mmol/L (22-30); Chloride 83 mmol/L (98-107); Estimated Creatinine Clearance 84 ml/min; Glucose 121 mg/dl (70-99); Potassium 3.3 mmol/L (3.5-5.1); Sodium 118 mmol/L (135-145); eGFR > 60.00
[2023-07-23] VITALS (7 sets, daily range): BP systolic 118–151; BP diastolic 57–88; BMI 28.2
--- NOTE | 2023-07-23 02:01 | PTCARENOTE ---
report called to [facility] for transfer.
--- NOTE | 2023-07-23 02:45 | PTCARENOTE ---
Patient transferred to room 406-2. He is awake and alert, offers no complaints. On the monitor he is in a normal sinus rhythm. Patient instructed to ring for assistance prior to getting out of bed, he verbalized understanding. Call white in reach.
[2023-07-23 06:18] LABS: Hematocrit 44.3 % (39.0-52.0); Hemoglobin 16.6 g/dL (13.0-18.0); Mean Corp Hgb Conc. 37.5 g/dL (33.0-37.0); Mean Corpuscular Hgb 33.5 pg (27.0-31.0); Mean Corpuscular Volume 89.5 fL (80.0-94.0); Mean Platelet Volume 8.3 fL (7.4-10.4); Platelet Count 224 10^3/uL (130-400); Red Blood Cell Count 4.95 10^6/uL (4.70-6.10); Red Cell Dist. Width 12.1 % (11.5-14.5)
[2023-07-23 06:34] LABS: ALT (SGPT) 46 U/L (0-50); AST (SGOT) 39 U/L (17-59); Alkaline Phosphatase 49 U/L (38-126); Blood Urea Nitrogen 18 mg/dl (9-20); Calcium 8.7 mg/dl (8.4-10.2); Carbon Dioxide 31 mmol/L (22-30); Chloride 84 mmol/L (98-107); Estimated Creatinine Clearance 67 ml/min; Glucose 115 mg/dl (70-99); Magnesium 2.4 mg/dl (1.6-2.3); Phosphorus 3.6 mg/dl (2.5-4.5); Potassium 3.3 mmol/L (3.5-5.1); Sodium 121 mmol/L (135-145); Total Bilirubin 2.9 mg/dl (0.2-1.3); Total Protein 6.3 g/dl (6.3-8.2); eGFR > 60.00
[2023-07-23] MEDS: PROTONIX 40 MG PO (08:33)
[2023-07-23] MEDS: ZYRTEC 10 MG PO (08:33)
--- NOTE | 2023-07-23 08:35 | W.PN.HOSP.TC ---
Today's Communication/Plan
-
PT/OT
GI eval
cont treatment hypernatremia as per Nephrology
monitor BMP
Benadryl prn upper airway cough syndrome
Scheduled Mucinex
Fall precautions
Assessment / Plan
Assessment / Plan
Physical Exam
General: No acute distress, appears comfortable at this time
HEENT: NormoCephalic, Moist mucous membranes and Atraumatic
Respiratory: Clear
Cardiac: S1/S2 and Regular Rhythm; No Murmur or Rub
GI: Soft, Non Tender, Non Distended and Normal Bowel Sounds; No Organomegaly
Musculoskeletal: No Clubbing, No Cyanosis and No Edema
Skin: No Rash
Neuro: Nonfocal/grossly intact
# Severe symptomatic hyponatremia secondary to hydrochlorothiazide
-Sodium improving
-initially admitted to ICU since downgraded to Tele
-HCTZ discontinued permanently
-Low urine sodium, osmolality
-TSH, a.m. cortisol wnl
-Hypertonic saline prn as per Nephro
-Nephro eval appreciated
# Hypokalemia secondary to hydrochlorothiazide
-monitor and Replete as necessary
# Recent sinusitis, appears to have resolved
# Allergic rhinitis
#Upper Airway Cough Syndrome
-completed adequate course of antibiotic prior to admission
-discontinued further antibiotics/steroids, monitor off
-Daily zyrtec (patient took intermittently at home)
-Scheduled Mucinex
-Benadryl prn nasal drip/cough
-outpt ENT follow up recommended
Dysphagia
-food stuck in chest esophageal retention noted VSE
-Speech eval appreciated
-GI eval requested
# Leukocytosis secondary to steroids
-resolved off steroids
Essential hypertension
-Discontinued hydrochlorothiazide
-BP relatively at goal at this time
-will consider alternative antihypertensive if BP persistently elevated
Mild T Bili elevation, LFTs otherwise wnl
-resolving
Hyperlipidemia
-Continue statin
GERD
-Continue omeprazole
Daily alcohol use
-No evidence of withdrawal currently
Full code
DVT prophylaxis heparin
Regular diet
PT/OT eval appreciated HH
I spent a total of 50 minutes with the patient or on the floor. More than 50% of this time involved counseling and coordination of care.
Anticipated Discharge: 24 - 48 hours
Subjective/Interval History
-
Date of Service: July 23, 2023
Continues to report post-nasal drip cough. Patient also reporting dysphagia, food stuck in chest sensation.
Objective Data
-
Labs:
Laboratory Results
07/22/23 07/22/23 07/23/23
08:00 20:13 05:23
WBC 8.0
Hgb 16.6
Hct 44.3
Plt Count 224
Sodium Cancelled 118 L* 121 L
Potassium Cancelled 3.3 L 3.3 L
Chloride Cancelled 83 L 84 L
Carbon Dioxide Cancelled 31 H 31 H
BUN Cancelled 19 18
Creatinine Cancelled 0.8 0.9
Glucose Cancelled 121 H 115 H
Calcium Cancelled 8.6 8.7
Total Bilirubin 2.9 H
AST 39
ALT 46
Alkaline Phosphatase 49
Vital Signs:
Vital Signs
Temp Pulse Resp BP Pulse Ox
98.1 F 66 18 125/57 97
07/23/23 07:25 07/23/23 07:25 07/23/23 07:25 07/23/23 07:25 07/23/23 07:25
I&O
07/22/23 07/23/23 07/24/23
06:59 06:59 06:59
Intake Total 60 / 60 1435 / 1435
Output Total 1300 / 1300
Balance -1240 / -1240 1435 / 1435
[2023-07-23] MEDS: KCL ELIXIR 40 MEQ PO (11:31)
--- NOTE | 2023-07-23 12:12 | PTOTSP ---
SPEECH THERAPY SWALLOW EVALUATION:
Patient presents with oropharyngeal swallow grossly within functional limits at this time. Patient with history of c/o globus sensation and following with Outpatient GI. Suspect primarily esophageal dysphagia. Recommend Regular texture diet, thin
liquids. Patient would benefit from Videofluoroscopic Swallowing Study to further assess swallow physiology given c/o globus sensation. VFSS would be appropriate as an Outpatient given chronicity of dysphagia complaints. Discussed with Dr. Martínez. ST
to follow up at the acute care level should VFSS be warranted at this time. Recommend GI consult to further assess complaints of esophageal dysphagia.
RECOMMEND:
1) Regular texture diet, thin liquids
2) Medications whole with liquid, cut if large
3) Aspiration precautions/safe swallow strategies including: Upright positioning; alternate textures and intersperse liquids while eating; Remain upright 30 minutes after eating/drinking; Small bites/sips; Slow rate of intake; Extra sauces/gravies
as needed; Pick soft/moist solids and avoid dry/hard textures
4) VFSS as outpatient or inpatient as indicated by MD
5) GI consult regarding complaints of esophageal dysphagia
--- NOTE | 2023-07-23 12:41 | PTOTSP ---
SPEECH THERAPY VIDEOFLUOROSCOPIC SWALLOWING STUDY:
Patient presents with WFL oral swallow function and mild pharyngeal dysphagia, in patient with known esophageal dysphagia (being followed by outpatient GI). Pharyngeal dysphagia likely related to primary esophageal dysphagia and possibly generalized
weakness/deconditioning. Swallow safety is preserved, with no penetration or aspiration noted during assessment. Swallow efficiency is mild-moderately impaired. Patient appears to be at low risk for aspiration and malnutrition/dehydration. CXR
clear. Diet modification is not indicated at this time. Recommend Regular texture diet, thin liquids. Aspiration precautions/safe swallow strategies including: Upright positioning; Small single sips/bites; alternate textures and intersperse liquids;
Remain upright 30 minutes after eating/drinking; Select soft/moist textures and avoid dry/hard textures. Recommend GI consult to further assess PES opening and esophageal phase of swallowing. Speech therapy to follow up x1 to assess diet tolerance
and modify as appropriate and provide education regarding aspiration risks/safe swallow strategies.
RECOMMEND:
1) Regular texture diet, thin liquids
2) Meds whole with liquids; cut if large
3) Aspiration precautions/safe swallow strategies including: Upright positioning; Small single sips/bites; alternate textures and intersperse liquids; Remain upright 30 minutes after eating/drinking; Select soft/moist textures and avoid dry/hard
textures.
4) Recommend GI consult to further assess PES opening and esophageal phase of swallowing
5) Speech therapy to follow up x1 to assess diet tolerance and modify as appropriate and provide education regarding aspiration risks/safe swallow strategies
[2023-07-23] MEDS: MUCINEX 1200 MG PO ×2 (16:26→20:01)
--- NOTE | 2023-07-23 16:43 | CON.GI ---
Addendum entered and electronically signed by Nancy Stern MD 07/24/23 10:34:
I saw and examined the patient.
The SHREDDING MACHINE OPERATOR or PA's note was reviewed and I agree with the note.
Comment: 73-year-old gentleman past medical history of reflux, esophagitis presenting with dizziness, weakness, confusion found to be hyponatremic with sodium of 118. GI is being consulted for longstanding dysphagia for 2 years. Of note, reviewing
records he had an upper endoscopy in 2011 with indication also being for dysphagia. Small hiatal hernia and esophagitis at that time. He states dysphagia has been intermittent more so with certain types of foods or how fast he eats. It has not
been progressive. No weight loss. His sodium is still in the 120s. We will plan for an esophagram tomorrow. If it is normal, we will plan to do an endoscopy as well as he is due for his colonoscopy as outpatient. We will increase his PPI to
twice daily as dysphagia may be due to esophagitis.
Will schedule outpatient 08/11 1pm with Ledy Christiansen. I will give card to patient for outpatient follow up.
Original Note:
Consultation
-
Date/Time Consultation Requested: 07/23/23 1200
Date/Time Consultation Performed: 07/24/23 0700
Requesting Provider: Bright Marítnez MD
Performing Provider: VANDANA Ovalles, Sunni Stern MD
Reason for Consultation: dysphagia
Medical History
Chief Complaint / HPI
Chief Complaint: food sticking in esophagus
History of Present Illness:
Pt is a 73yo with hx GERD, hiatal hernia, esophagitis, benign colon polyps, HTN, hypercholesterolemia with admission with dizziness, weakness and confusion. He was given recent Doxycycline and steroids for sinus infection. On admission patient
was noted with severe hyponatremia with na 118, K 3.3 with HCTZ use. He is noted with dysphagia and feeling of food sticking and asked to evaluate. Speech therapy was seen and speech therapy with VSE completed and noted with concern for primary
esophageal dysphagia and asked to assess for PES opening. hx EGD x [address] Castillo with noted esophagitis, gastric polyp, normal duodenum and repeat with HH, gastritis and normal duodenum bx mild chronic gastritis.
Pt state hx dysphagia is chronic for several years. He currently denies any issues last day. He states symptoms occur with fast eating and large pieces of food. No issue with soft or wet foods. He does have hx GERD stable on daily
Omeprazole. No nausea, vomiting, hematemesis, wt loss and actually admits to weight gain. No diarrhea, constipation or rectal bleeding. Last colonoscopy 2014 [facility]- 7 mm polyp AC, diverticulosis, IH bx benign mucosal lymphoid aggregate. Pt
was unsure if any further colonoscopy completed in [place] after this time.
Past Medical History
Past Medical History: GERD, HTN, Hypercholesterolemia and Other (hyponatemia, benign colon polyps, esophagitis, hiatal hernia)
Social History
Tobacco: Former Smoker (quit 1974)
Alcohol: Daily (2 drinks 35 % ETOH daily )
Drug: None
Personal:
Family History
Family History: Other (father with liver CA per prior Dr. Castillo notes father with colon CA and liver CA age 76, sister with ovarian and cervical CA at 48)
Allergies / Home Medications
Allergy/AdvReac Type Severity Reaction Status Date / Time
No Known Allergies Allergy Unverified 07/21/23 16:35
�Medication �Instructions �Recorded
simvastatin 20 mg tablet 20 mg PO HS High Cholesterol 01/18/10
doxycycline hyclate 100 mg tablet 100 mg PO BID Infection 07/21/23
hydrochlorothiazide 25 mg tablet 25 mg PO DAILY Fluid 07/21/23
Retention/Swelling
levofloxacin 500 mg tablet 500 mg PO DAILY Infection 07/21/23
methylprednisolone 4 mg tablets in 4 mg PO USEASDIRECTD 07/21/23
a dose pack Anti-Inflammatory
omeprazole 20 mg capsule,delayed 20 mg PO DAILY Gastrointestinal 07/21/23
release Issue
Review of Systems
-
History Source: Patient
Constitutional: Reports Weight Gain
EENT: Reports Other (recent sinus infection)
Respiratory: Reports No Symptoms
Cardiac: Reports No Symptoms
Abdomen/GI: Reports No Symptoms
: Reports No Symptoms
Musculoskeletal: Reports No Symptoms
Neurological: Reports No Symptoms
Endocrine: Reports No Symptoms
Hematologic/Lymphatic: Reports No Symptoms
Vital Signs
Temp Pulse Resp BP Pulse Ox
98.1 F 77 18 134/71 100
07/23/23 15:39 07/23/23 15:39 07/23/23 15:39 07/23/23 15:39 07/23/23 15:39
Physical Exam
Exam
General: Well Developed, Well Nourished and No Apparent Distress
HEENT: Normocephalic and Anicteric
Respiratory: Clear
Cardiac: Regular Rhythm
GI: Soft, Non Tender and Non Distended
Musculoskeletal: No Clubbing and No Cyanosis
Skin: Warm and Dry
Neuro: Awake, Alert and AO x 3
Psych: Calm
Results
WBC 8.0 10^3/uL (4.8-10.8) 07/23/23 05:23
Hgb 16.6 g/dL (13.0-18.0) 07/23/23 05:23
Hct 44.3 % (39.0-52.0) 07/23/23 05:23
MCV 89.5 fL (80.0-94.0) 07/23/23 05:23
Plt Count 224 10^3/uL (130-400) 07/23/23 05:23
Absolute Neuts (auto) 5.8 10^3/uL (1.4-6.5) 07/22/23 04:11
PT 13.0 Sec (11.4-14.6) 07/21/23 20:08
INR 1.00 07/21/23 20:08
APTT 26.1 Sec (23.4-35.0) 07/21/23 20:08
Sodium 121 mmol/L (135-145) L 07/23/23 05:23
Potassium 3.3 mmol/L (3.5-5.1) L 07/23/23 05:23
Chloride 84 mmol/L (98-107) L 07/23/23 05:23
Carbon Dioxide 31 mmol/L (22-30) H 07/23/23 05:23
BUN 18 mg/dl (9-20) 07/23/23 05:23
Creatinine 0.9 mg/dL (0.7-1.3) 07/23/23 05:23
Calcium 8.7 mg/dl (8.4-10.2) 07/23/23 05:23
Total Bilirubin 2.9 mg/dl (0.2-1.3) H 07/23/23 05:23
AST 39 U/L (17-59) 07/23/23 05:23
ALT 46 U/L (0-50) 07/23/23 05:23
Alkaline Phosphatase 49 U/L (38-126) 07/23/23 05:23
Diagnostic Image Results:
Prior GI Procedures:
EGD: 09/2011- [facility]- HH, gastritis normal duodenum bx mild chronic gastritis
EGD: 05/2011- [facility]- grade B esophagitis, gastric polyp normal duodenum
Colonoscopy: 2014- [facility]- 7 mm polyp AC, diverticulosis, IH bx benign mucosal lymphoid aggregate
Colonoscopy: 2008 - [facility]- 6 mm polyp cecum, diverticulosis, small internal hemorrhoids- bx benign polyp
Assessment / Plan
-
Pt is a 73yo with hx GERD, hiatal hernia, esophagitis, benign colon polyps, HTN, hypercholesterolemia with admission with dizziness, weakness and confusion. He was given recent Doxycycline and steroids for sinus infection. On admission patient
was noted with severe hyponatremia with na 118, K 3.3 with HCTZ use. He is noted with dysphagia and feeling of food sticking and asked to evaluate. Speech therapy was seen and speech therapy with VSE completed and noted with concern for primary
esophageal dysphagia and asked to assess for PES opening. hx EGD x [address] Castillo with noted esophagitis, gastric polyp, normal duodenum and repeat with HH, gastritis and normal duodenum bx mild chronic gastritis. Pt state hx dysphagia
is chronic for several years. He currently denies any issues last day. He states symptoms occur with fast eating and large pieces of food. No issue with soft or wet foods. He does have hx GERD stable on daily Omeprazole. N Last colonoscopy
2014 [facility]- 7 mm polyp AC, diverticulosis, IH bx benign mucosal lymphoid aggregate. Pt was unsure if any further colonoscopy completed in [place] after this time. per Records father with hx liver and colon CA.
-esophageal dysphagia
-severe hyponatremia on admission
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
-recent sinus infection with Steroid and Doxy use
other medical problems:
-GERD
-daily ETOH use
-Hiatal hernia
-HTN
-hypercholesterolemia
-family hx father liver/colon CA at age 76, prior colon benign polyps
PLAN:etiology of dysphagia related to esophageal dysmotility, esophagitis, esophageal ulceration as noted in past and noted on( Doxycycline and steroids prior to admission but symptoms appear more chronic) web, stricture vs other
plan for esophagram with barium tablet in AM if abnormal consider repeat EGD when Na in corrected
pt with chronic GERD has been on Omeprazole prior to admission
cont to correct NA per medical team - 122 today
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
discussed need to cut back on ETOH with 2 -- 35 % ETOH drinks daily
pt will need follow up colonoscopy with family hx -- request sent to office to obtain Dr. Castillo records to confirm no further colonoscopy since 2014
also sent message to arrange GI follow up after discharge
-
-
Thank you for consultation and allowing me to participate in the patient's care. Please call the [facility] GI physician during the after hours with any questions or concerns.
--- NOTE | 2023-07-23 17:25 | W.PN.NEPH.PH ---
Today's Communication / Plan
-
no 3% today
continue fluid restriction
follow up lytes in am
Assessment/Plan
-
IMP:
Severe hyponatremia
Hypokalemia
HTN
HLD
Chr sinus/nasal congestion
Plan:
A/w gen weakness and confusion sodium found at 111, repeat 108 ,now up to 121
continue to observe on FR
severe hyponatremia-d/c HCTZ indefinitly
U osmo 219 and U sodium low at 9, suspect high ADH state from illness and poor solute intake
goal of correction 6-8meq/day , FR 40ounces/day
TSH, cortisol were ok
BP stable
replace k , it help to raise na too
-
-
Date of Service: July 23, 2023
CC / HPI / ROS
-
Chief Complaint:
Hyponatremia
History of Present Illness:
sodium improving to 121 on fluid restriction
BP stable, k low 3.3
Review of Systems:
no cp or sob
feels better today , no dizziness
Labs
-
Labs:
WBC 8.0 10^3/uL (4.8-10.8) 07/23/23 05:23
RBC 4.95 10^6/uL (4.70-6.10) 07/23/23 05:23
Hgb 16.6 g/dL (13.0-18.0) 07/23/23 05:23
Hct 44.3 % (39.0-52.0) 07/23/23 05:23
Plt Count 224 10^3/uL (130-400) 07/23/23 05:23
Sodium 121 mmol/L (135-145) L 07/23/23 05:23
Potassium 3.3 mmol/L (3.5-5.1) L 07/23/23 05:23
Chloride 84 mmol/L (98-107) L 07/23/23 05:23
Carbon Dioxide 31 mmol/L (22-30) H 07/23/23 05:23
BUN 18 mg/dl (9-20) 07/23/23 05:23
Creatinine 0.9 mg/dL (0.7-1.3) 07/23/23 05:23
eGFR > 60.00 07/23/23 05:23
Glucose 115 mg/dl (70-99) H 07/23/23 05:23
Calcium 8.7 mg/dl (8.4-10.2) 07/23/23 05:23
Phosphorus 3.6 mg/dl (2.5-4.5) 07/23/23 05:23
Albumin 4.0 g/dl (3.5-5.0) 07/23/23 05:23
Physical Exam
-
Vital Signs:
Vital Signs
Temp Pulse Resp BP Pulse Ox
98.1 F 77 18 134/71 100
07/23/23 15:39 07/23/23 15:39 07/23/23 15:39 07/23/23 15:39 07/23/23 15:39
Cardiovascular:: Regular rate and rhythm
Respiratory:: Bilateral: CTA
Lung Excursion:: Normal
Abdomen:: Nontender and Soft
Bowel Sounds:: Normal
Extremity Edema:: None: Bilateral:
Das Catheter: No
[2023-07-23] MEDS: LOVENOX 40 MG SC (17:36)
[2023-07-23] MEDS: LIPITOR 10 MG PO (20:01)
[2023-07-24] VITALS (7 sets, daily range): BP systolic 120–144; BP diastolic 55–85
--- NOTE | 2023-07-24 07:07 | W.PN.HOSP.TC ---
Today's Communication/Plan
-
3% as per Nephrology
monitor Na
scheduled mucinex switched to prn Robitussin liquid d/t dysphagia
npo after midnight for esophagram as per GI
protonix BID
Assessment / Plan
Assessment / Plan
Physical Exam
General: No acute distress, appears comfortable at this time
HEENT: NormoCephalic, Moist mucous membranes and Atraumatic
Respiratory: Clear
Cardiac: S1/S2 and Regular Rhythm; No Murmur or Rub
GI: Soft, Non Tender, Non Distended and Normal Bowel Sounds; No Organomegaly
Musculoskeletal: No Clubbing, No Cyanosis and No Edema
Skin: No Rash
Neuro: Nonfocal/grossly intact
# Severe symptomatic hyponatremia secondary to hydrochlorothiazide
-Sodium improving
-initially admitted to ICU since downgraded to [facility]
-HCTZ discontinued permanently
-Low urine sodium, osmolality
-TSH, a.m. cortisol wnl
-Hypertonic saline prn as per Nephro
-Nephro eval appreciated
# Hypokalemia secondary to hydrochlorothiazide
-monitor and Replete as necessary
# Allergic rhinitis
#Post-nasal drip
#Upper Airway Cough Syndrome
-completed adequate course of antibiotic prior to admission
-discontinued further antibiotics/steroids, monitor off
-Daily zyrtec (patient took intermittently at home)
-Robitussin prn
-Benadryl prn nasal drip/cough
-outpt ENT follow up recommended
Dysphagia
-food stuck in chest esophageal retention noted VSE
-Speech eval appreciated
-GI eval appreciated NPO after midnight for esophagram 07/24
# Leukocytosis secondary to steroids
-resolved off steroids
Essential hypertension
-Discontinued hydrochlorothiazide
-BP relatively at goal at this time
-will consider alternative antihypertensive if BP persistently elevated
Mild T Bili elevation, LFTs otherwise wnl
-resolving
Hyperlipidemia
-Continue statin
GERD
-Continue Protonix increased to BID as per GI
Daily alcohol use
-No evidence of withdrawal currently
Full code
DVT prophylaxis heparin
Regular diet
PT/OT eval appreciated HH
I spent a total of 50 minutes with the patient or on the floor. More than 50% of this time involved counseling and coordination of care.
Anticipated Discharge: 24 - 48 hours
Subjective/Interval History
-
Date of Service: July 24, 2023
No acute distress. Continues to report post-nasal drip cough and dysphagia sensation of food stuck in chest.
Objective Data
-
Labs:
Laboratory Results
07/24/23
06:00
Sodium Pending
Potassium Pending
Chloride Pending
Carbon Dioxide Pending
BUN Pending
Creatinine Pending
Glucose Pending
Calcium Pending
Vital Signs:
Vital Signs
Temp Pulse Resp BP Pulse Ox
98.7 F 72 18 120/65 98
07/24/23 03:23 07/24/23 03:23 07/24/23 03:23 07/24/23 03:23 07/24/23 03:23
I&O
07/23/23 07/24/23 07/25/23
06:59 06:59 06:59
Intake Total 1435 / 1435 1200 / 1200
Output Total 600 / 600
Balance 1435 / 1435 1200 / 1200 -600 / -600
[2023-07-24 08:31] LABS: Blood Urea Nitrogen 16 mg/dl (9-20); Calcium 8.6 mg/dl (8.4-10.2); Carbon Dioxide 27 mmol/L (22-30); Chloride 88 mmol/L (98-107); Estimated Creatinine Clearance 87 ml/min; Glucose 126 mg/dl (70-99); Potassium 3.5 mmol/L (3.5-5.1); Sodium 122 mmol/L (135-145); eGFR > 60.00
[2023-07-24] MEDS: PROTONIX 40 MG PO ×2 (09:36→20:37)
[2023-07-24] MEDS: MUCINEX PO ×2 (09:36→09:45)
[2023-07-24] MEDS: ZYRTEC 10 MG PO (09:37)
--- NOTE | 2023-07-24 11:26 | CM ---
Patient seen bedside.
Patient for additional testing.
Will continue to follow for home care needs.
Plan:home with possible VN
[2023-07-24] MEDS: ROBITUSSIN 200 MG PO ×2 (12:02→20:45)
--- NOTE | 2023-07-24 14:45 | W.PN.NEPH.PH ---
Today's Communication / Plan
-
3% saline
Fluid restrict
Assessment/Plan
-
IMP:
Severe hyponatremia
Hypokalemia
HTN
HLD
Chr sinus/nasal congestion
Plan:
A/w gen weakness and confusion sodium found at 111, repeat 108 ,now up to 122
Repeat 3% saline infusion at 30 cc/h for 250 cc
Implemented fluid restrict
severe hyponatremia-d/c HCTZ indefinitely
U osmo 219 and U sodium low at 9, suspect high ADH state from illness and poor solute intake
goal of correction 6-8meq/day
TSH, cortisol were ok
BP stable
-
-
Date of Service: July 24, 2023
CC / HPI / ROS
-
Chief Complaint:
Hyponatremia
History of Present Illness:
sodium improving to 122 on fluid restriction
BP stable, k 3.5
Review of Systems:
no cp or sob
feels better today , no dizziness
Labs
-
Labs:
WBC 8.0 10^3/uL (4.8-10.8) 07/23/23 05:23
RBC 4.95 10^6/uL (4.70-6.10) 07/23/23 05:23
Hgb 16.6 g/dL (13.0-18.0) 07/23/23 05:23
Hct 44.3 % (39.0-52.0) 07/23/23 05:23
Plt Count 224 10^3/uL (130-400) 07/23/23 05:23
Sodium 122 mmol/L (135-145) L 07/24/23 07:37
Potassium 3.5 mmol/L (3.5-5.1) 07/24/23 07:37
Chloride 88 mmol/L (98-107) L 07/24/23 07:37
Carbon Dioxide 27 mmol/L (22-30) 07/24/23 07:37
BUN 16 mg/dl (9-20) 07/24/23 07:37
Creatinine 0.7 mg/dL (0.7-1.3) 07/24/23 07:37
eGFR > 60.00 07/24/23 07:37
Glucose 126 mg/dl (70-99) H 07/24/23 07:37
Calcium 8.6 mg/dl (8.4-10.2) 07/24/23 07:37
Phosphorus 3.6 mg/dl (2.5-4.5) 07/23/23 05:23
Albumin 4.0 g/dl (3.5-5.0) 07/23/23 05:23
Physical Exam
-
Vital Signs:
Vital Signs
Temp Pulse Resp BP Pulse Ox
97.8 F 83 18 121/66 96
07/24/23 11:36 07/24/23 11:36 07/24/23 11:36 07/24/23 11:36 07/24/23 11:36
Cardiovascular:: Regular rate and rhythm
Respiratory:: Bilateral: CTA
Lung Excursion:: Normal
Abdomen:: Nontender and Soft
Bowel Sounds:: Normal
Extremity Edema:: None: Bilateral:
Das Catheter: No
[2023-07-24] MEDS: SODIUM CHLORIDE 3% 250 IV (15:49)
[2023-07-24] MEDS: LOVENOX 40 MG SC (17:42)
[2023-07-24] MEDS: LIPITOR 10 MG PO (20:37)
[2023-07-25] VITALS (8 sets, daily range): BP systolic 121–153; BP diastolic 62–88; PULSE 75–78; O2SAT 96–99
--- NOTE | 2023-07-25 06:55 | W.PN.GI.CBS2 ---
Today's Communication / Plan
-
See assessment and plan for details.
Assessment / Plan
-
1. Dysphagia: Overall chronic, had previous endoscopy years ago for dysphagia, intermittent, without any alarm symptoms. At this point will await barium esophagram and if okay we will sign off from a GI standpoint, has appointment scheduled for
later this month with nurse practitioner and would likely schedule EGD and colonoscopy which she is due for at that time. If barium esophagram is concerning for other pathology then we will discuss endoscopy while inpatient.
Subjective
Subjective
Date of Service: July 25, 2023
Patient feeling okay, denies any significant abdominal pain, nausea or vomiting, no significant dysphagia overnight.
Objective
Data Reviewed
Laboratory Data:
Laboratory Results
07/23/23 05:23
Laboratory Results
PT 13.0 Sec (11.4-14.6) 07/21/23 20:08
INR 1.00 07/21/23 20:08
APTT 26.1 Sec (23.4-35.0) 07/21/23 20:08
Phosphorus 3.6 mg/dl (2.5-4.5) 07/23/23 05:23
Magnesium 2.4 mg/dl (1.6-2.3) H 07/23/23 05:23
Total Bilirubin 2.9 mg/dl (0.2-1.3) H 07/23/23 05:23
AST 39 U/L (17-59) 07/23/23 05:23
ALT 46 U/L (0-50) 07/23/23 05:23
Alkaline Phosphatase 49 U/L (38-126) 07/23/23 05:23
Vital Signs and I&O:
Vital Signs
Temp Pulse Resp BP Pulse Ox
98.0 F 73 18 121/62 97
07/25/23 02:49 07/25/23 02:49 07/25/23 02:49 07/25/23 02:49 07/25/23 02:49
I&O
07/23/23 07/24/23 07/25/23
06:59 06:59 06:59
Intake Total 1435 / 1435 1200 / 1200 1080 / 1080
Output Total 1700 / 1700
Balance 1435 / 1435 1200 / 1200 -620 / -620
Physical Exam
Physical Exam
General: NAD
Abdomen: normal bowel sounds, soft, no tenderness, no masses or bruits, no ascites
--- NOTE | 2023-07-25 07:08 | W.PN.HOSP.TC ---
Today's Communication/Plan
-
cont hyponatremia treatment as per Nephro
cont zyrtec daily, robitussin prn converted to scheduled TID
follow up repeat Iron studies with AM labs
PT/OT
Assessment / Plan
Assessment / Plan
Physical Exam
General: No acute distress, appears comfortable at this time
HEENT: NormoCephalic, Moist mucous membranes and Atraumatic
Respiratory: Clear
Cardiac: S1/S2 and Regular Rhythm; No Murmur or Rub
GI: Soft, Non Tender, Non Distended and Normal Bowel Sounds; No Organomegaly
Musculoskeletal: No Clubbing, No Cyanosis and No Edema
Skin: No Rash
Neuro: Nonfocal/grossly intact
# Severe symptomatic hyponatremia secondary to hydrochlorothiazide
-Sodium improving
-initially admitted to ICU since downgraded to Tele
-HCTZ discontinued permanently
-Low urine sodium, osmolality
-TSH, a.m. cortisol wnl
-Hypertonic saline samsca prn as per Nephro
-Nephro eval appreciated
# Hypokalemia secondary to hydrochlorothiazide
-monitor and Replete as necessary
-resolved
#Allergic rhinitis
#Post-nasal drip
#Upper Airway Cough Syndrome
-completed adequate course of antibiotic prior to admission
-discontinued further antibiotics/steroids, monitor off
-Daily zyrtec (patient took intermittently at home)
-Robitussin TID
-Benadryl prn nasal drip/cough
-outpt ENT follow up recommended
Dysphagia
-food stuck in chest esophageal retention noted VSE
-Speech eval appreciated
-esophagram Fri 07/24 possible esophageal web, 2 areas narrowing, delayed passage 13 mm pill, but otherwise no discrete mass/ulceration/significant stricture
-GI eval appreciated ok to restart diet, outpatient follow up for eventual EGD and colonoscopy.
Iron studies checked for deficiency given possible esophageal web
Elevated Iron levels noted instead
repeating with AM labs
# Leukocytosis secondary to steroids
-resolved off steroids
Essential hypertension
-Discontinued hydrochlorothiazide
-BP relatively at goal at this time
-will consider alternative antihypertensive if BP persistently elevated
Mild T Bili elevation, LFTs otherwise wnl
-resolving
Hyperlipidemia
-Continue statin
GERD
-Continue Protonix increased to BID as per GI
Daily alcohol use
-No evidence of withdrawal currently
Full code
DVT prophylaxis heparin
Regular diet
PT/OT eval appreciated HH
discussed with patient and [id number] Conchita
I spent a total of 50 minutes with the patient or on the floor. More than 50% of this time involved counseling and coordination of care.
Anticipated Discharge: 24 - 48 hours
Subjective/Interval History
-
Date of Service: July 25, 2023
No acute distress appears comfortable. Continues to report post-nasal drip but reports some improvement with robitussin prn.
Objective Data
-
Labs:
Laboratory Results
07/25/23
06:00
Sodium Pending
Potassium Pending
Chloride Pending
Carbon Dioxide Pending
BUN Pending
Creatinine Pending
Glucose Pending
Calcium Pending
Total Bilirubin Pending
AST Pending
ALT Pending
Alkaline Phosphatase Pending
Vital Signs:
Vital Signs
Temp Pulse Resp BP Pulse Ox
98.0 F 73 18 121/62 97
07/25/23 02:49 07/25/23 02:49 07/25/23 02:49 07/25/23 02:49 07/25/23 02:49
I&O
07/24/23 07/25/23 07/26/23
06:59 06:59 06:59
Intake Total 1200 / 1200 1080 / 1080
Output Total 1700 / 1700
Balance 1200 / 1200 -620 / -620
[2023-07-25] MEDS: PROTONIX PO (07:57)
[2023-07-25] MEDS: ZYRTEC PO (07:57)
--- NOTE | 2023-07-25 10:34 | W.PN.UPDATE ---
Update Note
Progress Note Update
Esophagram noted, possible web in the proximal esophagus, 2 mild areas of narrowing the no obvious mass or significant stricture. Is okay to restart diet, will follow-up again in the office as an outpatient, plan eventual EGD and colonoscopy. We
will sign off for now, please call back with any further questions.
[2023-07-25 12:03] LABS: ALT (SGPT) 41 U/L (0-50); AST (SGOT) 36 U/L (17-59); Albumin 3.7 g/dl (3.5-5.0); Alkaline Phosphatase 42 U/L (38-126); Blood Urea Nitrogen 15 mg/dl (9-20); Calcium 8.8 mg/dl (8.4-10.2); Carbon Dioxide 30 mmol/L (22-30); Chloride 89 mmol/L (98-107); Direct Bilirubin 0.5 mg/dl (0.0-0.4); Estimated Creatinine Clearance 76 ml/min; Glucose 125 mg/dl (70-99); Iron 237 ug/dl (49-181); Potassium 3.9 mmol/L (3.5-5.1); Sodium 124 mmol/L (135-145); Total Bilirubin 2.5 mg/dl (0.2-1.3); eGFR > 60.00
[2023-07-25 12:13] LABS: Percent Saturation 102 % (20-50); Total Iron Binding Capacity 231 ug/dl (261-462)
[2023-07-25] MEDS: ROBITUSSIN 200 MG PO ×2 (15:52→21:06)
--- NOTE | 2023-07-25 17:38 | W.PN.NEPH.PH ---
Today's Communication / Plan
-
samsca
Assessment/Plan
-
IMP:
Severe hyponatremia
Hypokalemia
HTN
HLD
Chr sinus/nasal congestion
Plan:
A/w gen weakness and confusion sodium found tra at 108 ,now up to 124
no sig response to 3% saline
will dose samsca today
hold HCTZ indefinitely
U osmo 219 and U sodium low at 9, suspect high ADH state from illness and poor solute intake
TSH, cortisol were ok
BP stable
d/w pt and family at bedside in detail
-
-
Date of Service: July 25, 2023
CC / HPI / ROS
-
Chief Complaint:
Hyponatremia
History of Present Illness:
sodium improving to 124 on fluid restriction and 3%
BP stable, k 3.9 better
Review of Systems:
no cp or sob
feels better today , no dizziness
dysphagia found to have narrowing of esophagus
Labs
-
Labs:
WBC 8.0 10^3/uL (4.8-10.8) 07/23/23 05:23
RBC 4.95 10^6/uL (4.70-6.10) 07/23/23 05:23
Hgb 16.6 g/dL (13.0-18.0) 07/23/23 05:23
Hct 44.3 % (39.0-52.0) 07/23/23 05:23
Plt Count 224 10^3/uL (130-400) 07/23/23 05:23
Sodium 124 mmol/L (135-145) L 07/25/23 11:14
Potassium 3.9 mmol/L (3.5-5.1) 07/25/23 11:14
Chloride 89 mmol/L (98-107) L 07/25/23 11:14
Carbon Dioxide 30 mmol/L (22-30) 07/25/23 11:14
BUN 15 mg/dl (9-20) 07/25/23 11:14
Creatinine 0.8 mg/dL (0.7-1.3) 07/25/23 11:14
eGFR > 60.00 07/25/23 11:14
Glucose 125 mg/dl (70-99) H 07/25/23 11:14
Calcium 8.8 mg/dl (8.4-10.2) 07/25/23 11:14
Phosphorus 3.6 mg/dl (2.5-4.5) 07/23/23 05:23
Albumin 3.7 g/dl (3.5-5.0) 07/25/23 11:14
Physical Exam
-
Vital Signs:
Vital Signs
Temp Pulse Resp BP Pulse Ox
97.3 F 75 18 124/69 96
07/25/23 15:30 07/25/23 15:30 07/25/23 15:30 07/25/23 15:30 07/25/23 15:30
Cardiovascular:: Regular rate and rhythm
Respiratory:: Bilateral: CTA
Lung Excursion:: Normal
Abdomen:: Nontender and Soft
Extremity Edema:: None: Bilateral:
Das Catheter: No
[2023-07-25] MEDS: LOVENOX 40 MG SC (17:41)
[2023-07-25] MEDS: SAMSCA 15 MG PO (18:22)
[2023-07-25] MEDS: PROTONIX 40 MG PO (21:05)
[2023-07-25] MEDS: LIPITOR 10 MG PO (21:06)
[2023-07-26 03:50] VITALS: BP 138/79
[2023-07-26 07:01] LABS: Hematocrit 40.5 % (39.0-52.0); Hemoglobin 15.1 g/dL (13.0-18.0); Mean Corp Hgb Conc. 37.3 g/dL (33.0-37.0); Mean Corpuscular Hgb 33.6 pg (27.0-31.0); Mean Corpuscular Volume 90.2 fL (80.0-94.0); Mean Platelet Volume 8.1 fL (7.4-10.4); Platelet Count 209 10^3/uL (130-400); Red Blood Cell Count 4.49 10^6/uL (4.70-6.10); Red Cell Dist. Width 12.2 % (11.5-14.5); White Blood Cell Count 5.8 10^3/uL (4.8-10.8)
--- NOTE | 2023-07-26 07:18 | W.PN.HOSP.TC ---
Today's Communication/Plan
-
Monitor Na
possible discharge tomorrow Home with Home services if Na remains stable
increase Robitussin from TID to QID
Assessment / Plan
Assessment / Plan
Physical Exam
General: No acute distress, appears comfortable at this time
HEENT: NormoCephalic, Moist mucous membranes and Atraumatic
Respiratory: Clear
Cardiac: S1/S2 and Regular Rhythm; No Murmur or Rub
GI: Soft, Non Tender, Non Distended and Normal Bowel Sounds; No Organomegaly
Musculoskeletal: No Clubbing, No Cyanosis and No Edema
Skin: No Rash
Neuro: Nonfocal/grossly intact
# Severe symptomatic hyponatremia secondary to hydrochlorothiazide
-Sodium improving 130s
-initially admitted to ICU since downgraded to Tele
-HCTZ discontinued permanently
-Low urine sodium, osmolality
-TSH, a.m. cortisol wnl
-Hypertonic saline samsca prn as per Nephro
-Nephro eval appreciated
# Hypokalemia secondary to hydrochlorothiazide
-monitor and Replete as necessary
-resolved
#Allergic rhinitis
#Post-nasal drip
#Upper Airway Cough Syndrome
-completed adequate course of antibiotic prior to admission
-discontinued further antibiotics/steroids, monitor off
-Daily zyrtec (patient took intermittently at home)
-Robitussin TID
-Benadryl prn nasal drip/cough
-outpt ENT follow up recommended
Dysphagia
-food stuck in chest esophageal retention noted VSE
-Speech eval appreciated
-esophagram Fri 07/24 possible esophageal web, 2 areas narrowing, delayed passage 13 mm pill, but otherwise no discrete mass/ulceration/significant stricture
-GI eval appreciated ok to restart diet, outpatient follow up for eventual EGD and colonoscopy.
Iron studies checked for deficiency given possible esophageal web
Elevated Iron levels noted instead
repeated with AM labs however noted resolved/resolving
# Leukocytosis secondary to steroids
-resolved off steroids
Essential hypertension
-Discontinued hydrochlorothiazide
-BP relatively at goal at this time
-will consider alternative antihypertensive if BP persistently elevated
Mild T Bili elevation, LFTs otherwise wnl
-resolving
Hyperlipidemia
-Continue statin
GERD
-Continue Protonix increased to BID as per GI
Daily alcohol use
-No evidence of withdrawal throughout hospitalization
Full code
DVT prophylaxis heparin
Regular diet
PT/OT eval appreciated HH
I spent a total of 50 minutes with the patient or on the floor. More than 50% of this time involved counseling and coordination of care.
Anticipated Discharge: Within 24 hours
Subjective/Interval History
-
Date of Service: July 26, 2023
No acute distress. Ambulating without issues. Post-nasal drip persists.
Objective Data
-
Labs:
Laboratory Results
07/26/23
05:52
WBC 5.8
Hgb 15.1
Hct 40.5
Plt Count 209
Sodium Pending
Potassium Pending
Chloride Pending
Carbon Dioxide Pending
BUN Pending
Creatinine Pending
Glucose Pending
Calcium Pending
Vital Signs:
Vital Signs
Temp Pulse Resp BP Pulse Ox
97.8 F 75 18 138/79 96
07/26/23 03:50 07/26/23 03:50 07/26/23 03:50 07/26/23 03:50 07/26/23 03:50
I&O
07/25/23 07/26/23 07/27/23
06:59 06:59 06:59
Intake Total 1080 / 1080 480 / 480
Output Total 1700 / 1700 1500 / 1500
Balance -620 / -620 -1020 / -1020
[2023-07-26 07:28] LABS: Blood Urea Nitrogen 12 mg/dl (9-20); Calcium 9.2 mg/dl (8.4-10.2); Carbon Dioxide 30 mmol/L (22-30); Chloride 95 mmol/L (98-107); Estimated Creatinine Clearance 76 ml/min; Glucose 127 mg/dl (70-99); Iron 159 ug/dl (49-181); Magnesium 2.3 mg/dl (1.6-2.3); Phosphorus 4.1 mg/dl (2.5-4.5); Potassium 3.7 mmol/L (3.5-5.1); Sodium 132 mmol/L (135-145); eGFR > 60.00
[2023-07-26 07:38] LABS: Percent Saturation 63 % (20-50); Total Iron Binding Capacity 250 ug/dl (261-462)
[2023-07-26 07:56] VITALS: BP 134/67
[2023-07-26] MEDS: PROTONIX 40 MG PO ×2 (08:26→21:09)
[2023-07-26] MEDS: ROBITUSSIN 200 MG PO ×4 (08:26→21:10)
[2023-07-26] MEDS: ZYRTEC 10 MG PO (08:26)
[2023-07-26] MEDS: FLUSH (NSS) 1 FLUSH IV (08:27)
[2023-07-26 11:24] VITALS: BP 136/58
[2023-07-26 15:38] VITALS: BP 118/70
--- NOTE | 2023-07-26 16:07 | PTCARENOTE ---
Pt AAO x3, HERNANDEZ, OOB in room with minimal assistance, no c/o weakness/dizziness; states he feels 'much better'. VSS. On room air- pulse ox 96%, no SOB noted. Abd soft, món[place] reg diet. Voiding in BR without difficulty. Resting in chair at present,
no c/o. Will continue to monitor.
--- NOTE | 2023-07-26 17:24 | W.PN.NEPH.PH ---
Today's Communication / Plan
-
observe, labs in am
Assessment/Plan
-
IMP:
Severe hyponatremia
Hypokalemia
HTN
HLD
Chr sinus/nasal congestion
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
Plan:
A/w gen weakness and confusion sodium found tra at 108 ,now up to 124
sodium better post samsca 07/24 to 132
hold HCTZ indefinitely
U osmo 219 and U sodium low at 9, suspect high ADH state from illness and poor solute intake
TSH, cortisol were ok
BP stable
d/w pt
when d/c BMP in 1week with PCP
-
-
Date of Service: July 26, 2023
CC / HPI / ROS
-
Chief Complaint:
Hyponatremia
History of Present Illness:
sodium improving to 132 on fluid restriction and sasmca 07/24
BP stable, k 3.7
Review of Systems:
no cp or sob
eating well
Labs
-
Labs:
WBC 5.8 10^3/uL (4.8-10.8) 07/26/23 05:52
RBC 4.49 10^6/uL (4.70-6.10) L 07/26/23 05:52
Hgb 15.1 g/dL (13.0-18.0) 07/26/23 05:52
Hct 40.5 % (39.0-52.0) 07/26/23 05:52
Plt Count 209 10^3/uL (130-400) 07/26/23 05:52
Sodium 132 mmol/L (135-145) L D 07/26/23 05:52
Potassium 3.7 mmol/L (3.5-5.1) 07/26/23 05:52
Chloride 95 mmol/L (98-107) L 07/26/23 05:52
Carbon Dioxide 30 mmol/L (22-30) 07/26/23 05:52
BUN 12 mg/dl (9-20) 07/26/23 05:52
Creatinine 0.8 mg/dL (0.7-1.3) 07/26/23 05:52
eGFR > 60.00 07/26/23 05:52
Glucose 127 mg/dl (70-99) H 07/26/23 05:52
Calcium 9.2 mg/dl (8.4-10.2) 07/26/23 05:52
Phosphorus 4.1 mg/dl (2.5-4.5) 07/26/23 05:52
Albumin 3.7 g/dl (3.5-5.0) 07/25/23 11:14
Physical Exam
-
Vital Signs:
Vital Signs
Temp Pulse Resp BP Pulse Ox
98.2 F 90 18 118/70 95
07/26/23 15:38 07/26/23 15:38 07/26/23 15:38 07/26/23 15:38 07/26/23 16:03
Cardiovascular:: Regular rate and rhythm
Respiratory:: Bilateral: CTA
Lung Excursion:: Normal
Abdomen:: Nontender and Soft
Extremity Edema:: None: Bilateral:
Das Catheter: No
[2023-07-26] MEDS: LOVENOX 40 MG SC (17:35)
[2023-07-26] MEDS: LIPITOR 10 MG PO (21:10)
[2023-07-26 23:30] VITALS: BP 141/78
--- NOTE | 2023-07-27 06:35 | W.PN.HOSP.TC ---
Today's Communication/Plan
-
discharge
Assessment / Plan
Assessment / Plan
Physical Exam
General: No acute distress, appears comfortable at this time
HEENT: NormoCephalic, Moist mucous membranes and Atraumatic
Respiratory: Clear
Cardiac: S1/S2 and Regular Rhythm; No Murmur or Rub
GI: Soft, Non Tender, Non Distended and Normal Bowel Sounds; No Organomegaly
Musculoskeletal: No Clubbing, No Cyanosis and No Edema
Skin: No Rash
Neuro: Nonfocal/grossly intact
# Severe symptomatic hyponatremia secondary to hydrochlorothiazide
-initially admitted to ICU since downgraded to Tele
-HCTZ discontinued permanently
-Low urine sodium, osmolality
-TSH, a.m. cortisol wnl
-Hypertonic saline samsca prn as per Nephro
-Nephro eval appreciated
-Sodium improved stable 130s 24 hrs without need for further samsca or 3% NS
# Hypokalemia secondary to hydrochlorothiazide
-monitor and Replete as necessary
-resolved
#Allergic rhinitis
#Post-nasal drip
#Upper Airway Cough Syndrome
-completed adequate course of antibiotic prior to admission
-discontinued further antibiotics/steroids, monitor off
-Daily zyrtec (patient took intermittently at home)
-Robitussin QID
-Benadryl prn nasal drip/cough
-outpt ENT follow up recommended
Dysphagia
-food stuck in chest esophageal retention noted VSE
-Speech eval appreciated
-esophagram Fri 07/24 possible esophageal web, 2 areas narrowing, delayed passage 13 mm pill, but otherwise no discrete mass/ulceration/significant stricture
-GI eval appreciated ok to restart diet, outpatient follow up for eventual EGD and colonoscopy.
Iron studies checked for deficiency given possible esophageal web
Elevated Iron levels noted instead
repeated with AM labs however noted resolved/resolving
# Leukocytosis secondary to steroids
-resolved off steroids
Essential hypertension
-Discontinued hydrochlorothiazide
-BP relatively at goal at this time
Mild T Bili elevation, LFTs otherwise wnl
-resolving
Hyperlipidemia
-Continue statin
GERD
-Continue Protonix increased to BID as per GI
Daily alcohol use
-No evidence of withdrawal throughout hospitalization
Full code
DVT prophylaxis heparin
Regular diet
PT/OT eval appreciated HH
Medically stable for discharge home with home services outpatient follow up recommendations.
Discussed with patient and his daughter Cami
Total Time Preparing Discharge ___50____ minutes including examination of the patient, summary of the hospital stay, instructions for continuing care to all relevant caregivers; and preparation of discharge records, prescriptions, and referral
forms if necessary.
Anticipated Discharge: Today
Subjective/Interval History
-
Date of Service: July 27, 2023
Seen and examined at bedside in no acute distress sitting up comfortably in bed. reports feeling well, post-nasal drip improved. Denies new acute issues. Eager to go home. Daughter Cami present during evaluation.
Objective Data
-
Labs:
Laboratory Results
07/27/23
06:00
WBC Pending
Hgb Pending
Hct Pending
Plt Count Pending
Sodium Pending
Potassium Pending
Chloride Pending
Carbon Dioxide Pending
BUN Pending
Creatinine Pending
Glucose Pending
Calcium Pending
Vital Signs:
Vital Signs
Temp Pulse Resp BP Pulse Ox
98.1 F 77 18 141/78 97
07/26/23 23:30 07/26/23 23:30 07/26/23 23:30 07/26/23 23:30 07/26/23 23:30
I&O
04/05/24 04/06/24 04/07/24
06:59 06:59 06:59
Intake Total 1080 / 1080 480 / 480 930 / 930
Output Total 1700 / 1700 1500 / 1500 500 / 500
Balance -620 / -620 -1020 / -1020 430 / 430
[2023-07-27 07:30] VITALS: BP 139/73
[2023-07-27 08:01] LABS: Hematocrit 39.7 % (39.0-52.0); Hemoglobin 14.4 g/dL (13.0-18.0); Mean Corp Hgb Conc. 36.3 g/dL (33.0-37.0); Mean Corpuscular Hgb 33.5 pg (27.0-31.0); Mean Corpuscular Volume 92.3 fL (80.0-94.0); Mean Platelet Volume 8.5 fL (7.4-10.4); Platelet Count 204 10^3/uL (130-400); Red Cell Dist. Width 12.2 % (11.5-14.5); White Blood Cell Count 4.1 10^3/uL (4.8-10.8)
[2023-07-27 08:29] LABS: Blood Urea Nitrogen 19 mg/dl (9-20); Calcium 8.9 mg/dl (8.4-10.2); Carbon Dioxide 26 mmol/L (22-30); Chloride 95 mmol/L (98-107); Estimated Creatinine Clearance 67 ml/min; Glucose 128 mg/dl (70-99); Iron 158 ug/dl (49-181); Magnesium 2.1 mg/dl (1.6-2.3); Phosphorus 4.2 mg/dl (2.5-4.5); Potassium 3.9 mmol/L (3.5-5.1); Sodium 131 mmol/L (135-145); eGFR > 60.00
[2023-07-27 08:38] LABS: Percent Saturation 65 % (20-50); Total Iron Binding Capacity 242 ug/dl (261-462)
[2023-07-27] MEDS: PROTONIX 40 MG PO (09:21)
[2023-07-27] MEDS: ROBITUSSIN 200 MG PO ×2 (09:21→14:16)
[2023-07-27] MEDS: ZYRTEC 10 MG PO (09:21)
[2023-07-27] MEDS: FLUSH (NSS) 1 FLUSH IV (09:21)
--- NOTE | 2023-07-27 13:56 | W.PN.NEPH.PH ---
Today's Communication / Plan
-
ok to d/c
Assessment/Plan
-
IMP:
Severe hyponatremia
Hypokalemia
HTN
HLD
Chr sinus/nasal congestion
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
Plan:
A/w gen weakness and confusion sodium found tra at 108 ,
sodium better post samsca / to 131
hold HCTZ indefinitely , if needed can add lasix 20mg daily as out pt
U osmo 219 and U sodium low at 9, suspect high ADH state from illness and poor solute intake
TSH, cortisol were ok
BP stable
d/w pt
when d/c BMP in 1week with PCP
nephro if needed
-
-
Date of Service: July 27, 2023
CC / HPI / ROS
-
Chief Complaint:
Hyponatremia
History of Present Illness:
sodium stable at 131 on fluid restriction and sasa 07/24
BP stable, k 3.7
Review of Systems:
no cp or sob
eating well
Labs
-
Labs:
WBC 4.1 10^3/uL (4.8-10.8) L 07/27/23 07:05
RBC 4.30 10^6/uL (4.70-6.10) L 07/27/23 07:05
Hgb 14.4 g/dL (13.0-18.0) 07/27/23 07:05
Hct 39.7 % (39.0-52.0) 07/27/23 07:05
Plt Count 204 10^3/uL (130-400) 07/27/23 07:05
Sodium 131 mmol/L (135-145) L 07/27/23 07:05
Potassium 3.9 mmol/L (3.5-5.1) 07/27/23 07:05
Chloride 95 mmol/L (98-107) L 07/27/23 07:05
Carbon Dioxide 26 mmol/L (22-30) 07/27/23 07:05
BUN 19 mg/dl (9-20) 07/27/23 07:05
Creatinine 0.9 mg/dL (0.7-1.3) 07/27/23 07:05
eGFR > 60.00 07/27/23 07:05
Glucose 128 mg/dl (70-99) H 07/27/23 07:05
Calcium 8.9 mg/dl (8.4-10.2) 07/27/23 07:05
Phosphorus 4.2 mg/dl (2.5-4.5) 07/27/23 07:05
Albumin 3.7 g/dl (3.5-5.0) 07/25/23 11:14
Physical Exam
-
Vital Signs:
Vital Signs
Temp Pulse Resp BP Pulse Ox
98.2 F 77 17 139/73 99
07/27/23 07:30 07/27/23 07:30 07/27/23 07:30 07/27/23 07:30 07/27/23 07:30
Cardiovascular:: Regular rate and rhythm
Respiratory:: Bilateral: CTA
Lung Excursion:: Normal
Abdomen:: Nontender and Soft
Extremity Edema:: None: Bilateral:
Das Catheter: No
--- NOTE | 2023-07-27 14:25 | W.DCSUMMARY ---
Discharge Summary
Discharge Data
Date of Admission: 07/21/23
Date of Discharge: 07/27/23
-
Pending Results: No
Hospital Course
73M hypertension, hyperlipidemia, allergies, GERD, presented with dizziness, weakness, slight confusion. Patient has been having sinus symptoms including facial pressure, nasal congestion and postnasal drip for the past 2 and half weeks. He was
treated with a course of doxycycline without improvement followed by another antibiotic without improvement followed by Levaquin and prednisone which he started 4 days ago. He denied any sore throat or fevers or chills at any time. He has been
taking Zyrtec and Benadryl at nighttime with some improvement. Patient also noted feeling dizzy for the past week. No headache or blurry vision. He has been having generalized weakness and reported slight confusion. Denied numbness or tingling.
Denied any history of low sodium in the past. Patient reported being on hydrochlorothiazide for a long time without any recent changes in dosage. Severe symptomatic hyponatremia secondary to hydrochlorothiazide, HCTZ was discontinued permanently.
Low urine sodium, osmolality. TSH and a.m. cortisol wnl. Patient was treated with Hypertonic saline samsca as per Nephro recommendations. Sodium slowly improved to stable 130s. Last 24 hrs hospitalization, patient exhibited no further need
samsca or 3% NS. With regards to allergic rhinitis, post-nasal drip, likely upper airway cough syndrome, patient completed adequate course of antibiotics prior to admission. Discontinued further antibiotics/steroids, monitored off during this
hospitalization. Patient improved with daily Zyrtec and Robitussin QID. Outpt ENT follow up was recommended. Patient was also evaluated for Dysphagia, reported food stuck in chest sensation. Esophageal retention was noted on VSE. Esophagram Fri
07/24 noted possible esophageal web, 2 areas narrowing, delayed passage 13 mm pill, but otherwise no discrete mass/ulceration/significant stricture. GI eval appreciated ok to restart diet, outpatient follow up for eventual EGD and colonoscopy.
Iron studies checked for deficiency given possible esophageal web, elevated Iron levels were noted instead. Repeated iron studies following AM labs however noted resolved/resolving. With regards to Essential hypertension, BP remained relatively
stable, within goal, while off hydrochlorothiazide. Medically stable, patient was discharged home with home services and outpatient follow up recommendations.
Discharge Plan
-
Patient Disposition: Home with Home Care
Discharge Diagnosis/Procedures: Hyponatremia Hypokalemia due to Hydrochlorothiazide, Post-nasal drip, Dysphagia, Possible esophageal web, Mild Elevated Iron levels unclear etiology resolved, History Hypertension, Hyperlipidemia, GERD
Condition: Fair
Diet: Low Cholesterol and Restrict fluids to 48 oz
Activity: As tolerated
Driving Restrictions: Not until seen by your Dr
Bathing Restrictions: None
Blood Work: Please repeat BMP in 1 week of discharge, results to be forwarded to primary care provider, script provided to facilitate.
Please repeat Iron Studies with Primary care provider in 1 month of discharge to insure continued resolution elevated iron levels.
Others Tests: Please follow up with GI for eventual EGD and colonoscopy at your upcoming GI appointment.
Other Services: VN, PT and OT
Activity Restrictions/Additional Instructions:
Please follow up with primary care provider in 1 week of discharge, keep your appointment with GI, follow up with ENT in 2 weeks of discharge.
Please discuss with primary care provider regarding obtaining allergy/immunology referral.
as needed zyrtec, robitussin, and nasal spray Flonase have been prescribed for post-nasal drip.
Hydrochlorothiazide has been discontinued due to severe hyponatremia/hypokalemia since resolved.
Please take medications as prescribed/recommended and follow up with primary care provider and/or other healthcare provider involved in your care for refills and/or further adjustment to your medication regimen as necessary.
Instructions: Low Cholesterol, Saturated Fat, and Trans Fat Diet , Hyponatremia (DC), Fluid Restricted Diet
Stand Alone Forms: Return to Work
Referrals:
Maryann Rodney CRNP [Non-Admitting Privileges] - 08/12/23 1:00 pm (Please call to reschedule if you can not keep this appointment. If your insurance requires a referral please contact your primary care physician prior to your
appointment. )
Vijay Mcdaniel MD [Active] - in two weeks
Vicky Mora MD [Family Provider] - in one week
Prescriptions:
New
guaifenesin [Siltussin SA] 100 mg/5 mL Liquid
200 mg PO QID PRN (Reason: Cough/congestion) 30 Days Qty: 1500 0RF
fluticasone propionate [24 Hour Allergy Relief] 50 mcg/actuation spray,suspension
1 spray intranasal DAILY Qty: 16 0RF
cetirizine 10 mg Tablet
10 mg PO DAILY PRN (Reason: allergy symptoms) Qty: 30 0RF
Continued
simvastatin 20 MG tablet
20 mg PO HS
omeprazole 20 mg Capsule,Delayed Release(Dr/Ec)
20 mg PO DAILY
Discontinued
hydrochlorothiazide 25 mg tablet
25 mg PO DAILY
levofloxacin 500 mg tablet
500 mg PO DAILY
methylprednisolone 4 mg tablets,dose pack
4 mg PO USEASDIRECTD
doxycycline hyclate 100 mg tablet
100 mg PO BID
Discharge Orders:
Discharge Patient (As Directed); Ordered 07/27/23
Ordered By: Jewel Martínez
Discharge Date and Time
Discharge Date/Time: 07/27/23 17:03
Print Language: [id number]
--- NOTE | 2023-07-27 15:11 | CM ---
Patient with Dx Severe symptomatic hyponatremia, hypokalemia, dysphagia. PT & OT recommend HH.
Met with patient and his daughter.
The patient was preparing for d/c today and says he feels ready to go home today. IMM completed.
Patient offered VN and he chooses [facility].
His daughter will provide transport home.
Referral to Jordana Hale, [facility] Liaison.
Plan home today with [facility].
[2023-07-27 15:40] VITALS: BP 146/86
== END 2023-07-27 17:03 | disposition home health service (06) | DRG 641 ==
LOC: 4 EAST ACU 18:09
PROVIDERS: Nurse Practitioner Adult Health; Nurse Practitioner Primary Care; Physician Assistant; Specialist; ADMITTING PHYSICIAN Hospitalist; ATTENDING PHYSICIAN Internal Medicine; CONSULT PHYSICIAN Internal Medicine; CONSULT PHYSICIAN Internal Medicine Gastroenterology; EMERGENCY PHYSICIAN Emergency Medicine; FAMILY PHYSICIAN Family Medicine; OTHER PHYSICIAN Internal Medicine Critical Care Medicine
DX: E87.1 Hypo-osmolality and hyponatremia (principal); E86.0 Dehydration; R29.6 Repeated falls; I10 Essential (primary) hypertension; E78.00 Pure hypercholesterolemia, unspecified; T50.2X5A Adverse effect of carbonic-anhydrase inhibitors, benzothiadiazides and other diuretics, initial encounter; K21.00 Gastro-esophageal reflux disease with esophagitis, without bleeding; E87.6 Hypokalemia; J30.9 Allergic rhinitis, unspecified; D72.829 Elevated white blood cell count, unspecified; T38.0X5A Adverse effect of glucocorticoids and synthetic analogues, initial encounter; J06.9 Acute upper respiratory infection, unspecified; K44.9 Diaphragmatic hernia without obstruction or gangrene; R73.03 Prediabetes; R13.14 Dysphagia, pharyngoesophageal phase; F10.90 Alcohol use, unspecified, uncomplicated; R73.01 Impaired fasting glucose; Y92.9 Unspecified place or not applicable; Z87.19 Personal history of other diseases of the digestive system; Z87.891 Personal history of nicotine dependence; Z80.0 Family history of malignant neoplasm of digestive organs; Z83.3 Family history of diabetes mellitus; Z86.010 Personal history of colon polyps
CPT/HCPCS: 71045; 74221; 74230; 80048; 80053; 81003; 81015; 82248; 82533; 82728; 83540; 83550; 83735; 83930; 83935; 84100; 84300; 84443; 85025; 85027; 85610; 85730; 92526; 92610; 92611; 93005; 97116; 97163; 97167; 97530; 97535; 99285

== ENCOUNTER → 2023-09-02 06:33 | Day surgery (SDC) | payer BC, SELFPAY | LOC: GI 06:33 | PROVIDERS: ATTENDING PHYSICIAN Internal Medicine Gastroenterology; FAMILY PHYSICIAN Family Medicine | DX: R13.10 Dysphagia, unspecified (principal); K22.2 Esophageal obstruction; K31.7 Polyp of stomach and duodenum; K31.89 Other diseases of stomach and duodenum; K29.50 Unspecified chronic gastritis without bleeding | CPT/HCPCS: 43249; 43239; 88305; 88342 ==